=== PATIENT | male | born 1955 | race African-American/Black ===

== ENCOUNTER 2021-02-04 11:15 | Inpatient (IN) | payer OTHER ==
[2021-02-04 12:19] LABS: BASO % 0.4 % (0-2.0); EOS % 0.8 % (0-4.5); HEMATOCRIT 28.5 % (35.4-49); HEMOGLOBIN 9.2 GM/dL (11.7-16.9); MCH 26.1 pg (25.7-33.7); MCHC 32.3 g/dl (32.0-35.9); MEAN CELL VOLUME 80.9 fl (80-96); MEAN PLT VOLUME 8.4 fl (7.5-11.1); MONO % 4.9 % (3.8-10.2); NEUT % 79.9 % (42.8-82.8); PLATELET COUNT 444 K/MM3 (134-434); RBC 3.53 M/mm3 (4.00-5.60); RDW 19.7 % (11.9-15.9); WHITE BLOOD COUNT 6.4 K/mm3 (4.0-10.0)
[2021-02-04 12:27] LABS: INR 1.09 (0.83-1.09); PROTHROMBIN TIME (PATIENT) 13.4 SEC (9.7-13.0)
[2021-02-04 12:29] LABS: ACTIVATED PTT 29.3 SECONDS (25.2-36.5)
[2021-02-04 12:39] LABS: CHLORIDE 106 mmol/L (98-107); SODIUM 136 mmol/L (136-145)
[2021-02-04 12:41] LABS: ALBUMIN 3.4 g/dl (3.4-5.0); ANION GAP 7 MMOL/L (8-16); BLOOD UREA NITROGEN 39.2 mg/dL (7-18); CALCIUM 10.8 mg/dL (8.5-10.1); CO2 23 mmol/L (21-32); MAGNESIUM 1.5 mg/dL (1.8-2.4)
[2021-02-04 12:42] LABS: GLUCOSE,RANDOM 86 mg/dL (74-106)
[2021-02-04 12:43] LABS: SGOT/AST 14 U/L (15-37); SGPT/ALT 8 U/L (13-61)
[2021-02-04 12:45] LABS: BILIRUBIN,TOTAL 0.3 mg/dL (0.2-1); CREATININE 1.7 mg/dL (0.55-1.3); TOT PROT 8.3 g/dl (6.4-8.2)
[2021-02-04 12:47] LABS: ALK PHOS 82 U/L (45-117)
[2021-02-04 12:50] LABS: N-TERMINAL BNP 317.2 pg/ml (5-125)
[2021-02-04] MEDS ORDERED: MAGNESIUM SULF 50% (8.12 MEQ/2 ML-1 GM VIAL) IVPB ONE (13:37)
[2021-02-04] MEDS ORDERED: MAGNESIUM SULFATE IN WATER 2 GM/50 ML IVPB IVPB ONE (13:43)
[2021-02-04] MEDS ORDERED: morphine CARPU-JECT 2 MG/1 ML DISP.SYRIN IVPUSH ONE (14:20)
[2021-02-04] MEDS ORDERED: LACTATED RINGERS SOLUTION 1000 ML INFUS.BAG IV ONE (14:20)
[2021-02-04] MEDS ORDERED: MORPHINE SULFATE 2 MG/ML VIAL ONE (14:34)
[2021-02-04 15:08] LABS: INR 1.08 (0.83-1.09); PROTHROMBIN TIME (PATIENT) 13.2 SEC (9.7-13.0)
[2021-02-04 15:10] LABS: ACTIVATED PTT 27.5 SECONDS (25.2-36.5)
[2021-02-04] MEDS ORDERED: ACETAMINOPHEN 325 MG TABLET (FP) PO PRN (15:52)
[2021-02-04] MEDS ORDERED: MORPHINE SULFATE 2 MG/ML VIAL IVPUSH PRN (15:52)
[2021-02-04] MEDS: LACTATED RINGERS SOLUTION 1,000 ML IV SCH (16:15)
[2021-02-04 17:42] LABS: IRON SERUM 42 ug/dL (50-175); TOTAL IRON BINDING CAPACITY 238 ug/dL (250-450)
[2021-02-04] MEDS: HEPARIN NA (PORCINE) 5,000 UNITS/ML 1ML VIAL SQ SCH (23:37)
[2021-02-05] MEDS: HEPARIN NA (PORCINE) 5,000 UNITS/ML 1ML VIAL SQ SCH ×3 (06:49→23:07)
[2021-02-05 07:16] LABS: BASO % 1.3 % (0-2.0); EOS % 1.9 % (0-4.5); HEMATOCRIT 23.4 % (35.4-49); HEMOGLOBIN 7.4 GM/dL (11.7-16.9); LYMPH % 22.2 % (8-40); MCH 25.8 pg (25.7-33.7); MCHC 31.5 g/dl (32.0-35.9); MEAN PLT VOLUME 8.9 fl (7.5-11.1); NEUT % 67.6 % (42.8-82.8); PLATELET COUNT 409 K/MM3 (134-434); RBC 2.85 M/mm3 (4.00-5.60); RDW 19.8 % (11.9-15.9); WHITE BLOOD COUNT 4.7 K/mm3 (4.0-10.0)
[2021-02-05 07:35] LABS: BLOOD UREA NITROGEN 33.2 mg/dL (7-18); CALCIUM 9.2 mg/dL (8.5-10.1); MAGNESIUM 1.8 mg/dL (1.8-2.4)
[2021-02-05 07:37] LABS: CREATININE 1.3 mg/dL (0.55-1.3)
[2021-02-05 07:39] LABS: BILIRUBIN,TOTAL 0.4 mg/dL (0.2-1); PHOSPHOROUS 4.1 mg/dL (2.5-4.9); TOT PROT 6.4 g/dl (6.4-8.2)
[2021-02-05 07:46] LABS: ALBUMIN 2.6 g/dl (3.4-5.0)
[2021-02-05] MEDS: FERROUS SO4 325 MG TABLET (FP) PO SCH (11:51)
[2021-02-05] MEDS: LACTATED RINGERS SOLUTION 1,000 ML IV SCH (15:27)
[2021-02-05] MEDS: ACETAMINOPHEN 325 MG TABLET (FP) PO PRN ×2 (18:19→23:06)
[2021-02-06] MEDS: LACTATED RINGERS SOLUTION 1,000 ML IV SCH ×3 (01:42→18:31)
[2021-02-06] MEDS: HEPARIN NA (PORCINE) 5,000 UNITS/ML 1ML VIAL SQ SCH ×3 (06:35→20:59)
[2021-02-06 07:32] LABS: HEMATOCRIT 21.1 % (35.4-49); MCH 26.7 pg (25.7-33.7); MCHC 33.1 g/dl (32.0-35.9); MEAN CELL VOLUME 80.7 fl (80-96); MEAN PLT VOLUME 8.9 fl (7.5-11.1); PLATELET COUNT 380 K/MM3 (134-434); RBC 2.62 M/mm3 (4.00-5.60); RDW 19.8 % (11.9-15.9); WHITE BLOOD COUNT 4.6 K/mm3 (4.0-10.0)
[2021-02-06 08:07] LABS: ALBUMIN 2.3 g/dl (3.4-5.0); BLOOD UREA NITROGEN 29.7 mg/dL (7-18); CALCIUM 8.9 mg/dL (8.5-10.1)
[2021-02-06 08:11] LABS: CREATININE 1.1 mg/dL (0.55-1.3)
[2021-02-06 08:12] LABS: BILIRUBIN,TOTAL 0.2 mg/dL (0.2-1); TOT PROT 5.8 g/dl (6.4-8.2)
[2021-02-06] MEDS: FERROUS SO4 325 MG TABLET (FP) PO SCH (09:44)
[2021-02-06] MEDS: MORPHINE SULFATE 2 MG/ML VIAL IVPUSH PRN ×3 (09:50→20:18)
[2021-02-07] MEDS: LACTATED RINGERS SOLUTION 1,000 ML IV SCH (00:20)
[2021-02-07] MEDS: MORPHINE SULFATE 2 MG/ML VIAL IVPUSH PRN ×3 (00:20→14:46)
[2021-02-07] MEDS: HEPARIN NA (PORCINE) 5,000 UNITS/ML 1ML VIAL SQ SCH ×3 (05:24→21:11)
[2021-02-07] MEDS: FERROUS SO4 325 MG TABLET (FP) PO SCH (09:25)
[2021-02-07 09:53] LABS: HEMATOCRIT 21.8 % (35.4-49); HEMOGLOBIN 7.1 GM/dL (11.7-16.9); LYMPH % 18.8 % (8-40); MCH 26.3 pg (25.7-33.7); MCHC 32.5 g/dl (32.0-35.9); MEAN CELL VOLUME 80.9 fl (80-96); MEAN PLT VOLUME 8.5 fl (7.5-11.1); MONO % 10.6 % (3.8-10.2); NEUT % 67.6 % (42.8-82.8); PLATELET COUNT 405 K/MM3 (134-434); RBC 2.69 M/mm3 (4.00-5.60); RDW 20.2 % (11.9-15.9); WHITE BLOOD COUNT 6.5 K/mm3 (4.0-10.0)
[2021-02-07] MEDS: ACETAMINOPHEN 325 MG TABLET (FP) PO PRN (17:09)
[2021-02-07 17:33] VITALS: BMI 16.7
[2021-02-08] MEDS: ACETAMINOPHEN 325 MG TABLET (FP) PO PRN ×2 (05:44→21:10)
[2021-02-08] MEDS: HEPARIN NA (PORCINE) 5,000 UNITS/ML 1ML VIAL SQ SCH ×3 (05:45→21:08)
[2021-02-08 07:21] LABS: BASO % 1.3 % (0-2.0); EOS % 3.5 % (0-4.5); HEMATOCRIT 21.9 % (35.4-49); HEMOGLOBIN 7.3 GM/dL (11.7-16.9); LYMPH % 16.6 % (8-40); MCH 26.8 pg (25.7-33.7); MCHC 33.4 g/dl (32.0-35.9); MEAN CELL VOLUME 80.3 fl (80-96); MEAN PLT VOLUME 8.9 fl (7.5-11.1); MONO % 11.8 % (3.8-10.2); NEUT % 66.8 % (42.8-82.8); PLATELET COUNT 412 K/MM3 (134-434); RBC 2.73 M/mm3 (4.00-5.60); RDW 20.3 % (11.9-15.9); WHITE BLOOD COUNT 8.1 K/mm3 (4.0-10.0)
[2021-02-08] MEDS: FERROUS SO4 325 MG TABLET (FP) PO SCH (10:02)
[2021-02-09] MEDS: HEPARIN NA (PORCINE) 5,000 UNITS/ML 1ML VIAL SQ SCH ×3 (05:42→23:02)
[2021-02-09] MEDS: MORPHINE SULFATE 2 MG/ML VIAL IVPUSH PRN (07:56)
[2021-02-09] MEDS: FERROUS SO4 325 MG TABLET (FP) PO SCH (09:02)
[2021-02-09] MEDS: ACETAMINOPHEN 325 MG TABLET (FP) PO PRN (23:02)
[2021-02-10] MEDS: HEPARIN NA (PORCINE) 5,000 UNITS/ML 1ML VIAL SQ SCH ×3 (06:17→21:47)
[2021-02-10] MEDS: MORPHINE SULFATE 2 MG/ML VIAL IVPUSH PRN (08:07)
[2021-02-10] MEDS: FERROUS SO4 325 MG TABLET (FP) PO SCH (10:16)
[2021-02-10] MEDS: DOCUSATE SODIUM 100 MG CAPSULE (FP) PO SCH ×2 (14:04→21:47)
[2021-02-10] MEDS: ACETAMINOPHEN 325 MG TABLET (FP) PO PRN (19:45)
[2021-02-11] MEDS: DOCUSATE SODIUM 100 MG CAPSULE (FP) PO SCH ×3 (06:11→22:04)
[2021-02-11] MEDS: HEPARIN NA (PORCINE) 5,000 UNITS/ML 1ML VIAL SQ SCH ×3 (06:11→22:04)
[2021-02-11 07:57] LABS: HEMATOCRIT 22.7 % (35.4-49); HEMOGLOBIN 7.5 GM/dL (11.7-16.9); MCH 26.7 pg (25.7-33.7); MCHC 33.2 g/dl (32.0-35.9); MEAN CELL VOLUME 80.6 fl (80-96); MEAN PLT VOLUME 9.2 fl (7.5-11.1); PLATELET COUNT 502 K/MM3 (134-434); RBC 2.81 M/mm3 (4.00-5.60); RDW 20.6 % (11.9-15.9); WHITE BLOOD COUNT 5.3 K/mm3 (4.0-10.0)
[2021-02-11 08:43] LABS: BLOOD UREA NITROGEN 32.6 mg/dL (7-18)
[2021-02-11 08:47] LABS: TOT PROT 7.2 g/dl (6.4-8.2)
[2021-02-11 08:49] LABS: CREATININE 1.2 mg/dL (0.55-1.3)
[2021-02-11 08:50] LABS: BILIRUBIN,TOTAL 0.3 mg/dL (0.2-1)
[2021-02-11 08:52] LABS: CALCIUM 10.7 mg/dL (8.5-10.1)
[2021-02-11] MEDS: FERROUS SO4 325 MG TABLET (FP) PO SCH (10:03)
[2021-02-11] MEDS ORDERED: oxyCODONE HCL 5 MG TABLET PO PRN (12:49)
[2021-02-12] MEDS: HEPARIN NA (PORCINE) 5,000 UNITS/ML 1ML VIAL SQ SCH ×3 (05:32→21:33)
[2021-02-12] MEDS: DOCUSATE SODIUM 100 MG CAPSULE (FP) PO SCH ×3 (05:35→21:32)
[2021-02-12] MEDS: FERROUS SO4 325 MG TABLET (FP) PO SCH (09:28)
[2021-02-12 11:30] LABS: HEMATOCRIT 31.6 % (35.4-49); HEMOGLOBIN 10.9 GM/dL (11.7-16.9); MCH 27.7 pg (25.7-33.7); MCHC 34.5 g/dl (32.0-35.9); MEAN CELL VOLUME 80.2 fl (80-96); MEAN PLT VOLUME 8.1 fl (7.5-11.1); PLATELET COUNT 472 K/MM3 (134-434); RBC 3.94 M/mm3 (4.00-5.60); RDW 18.3 % (11.9-15.9); WHITE BLOOD COUNT 8.2 K/mm3 (4.0-10.0)
[2021-02-13] MEDS: DOCUSATE SODIUM 100 MG CAPSULE (FP) PO SCH ×3 (06:22→21:35)
[2021-02-13] MEDS: HEPARIN NA (PORCINE) 5,000 UNITS/ML 1ML VIAL SQ SCH ×4 (06:26→21:35)
[2021-02-13] MEDS ORDERED: DEXMEDETOMIDINE HCL 200 MCG/2 ML IVPB ONE ×2 (06:29→06:30)
[2021-02-13] MEDS ORDERED: EPHEDRINE SULFATE/0.9% NACL/PF 50 MG/10 ML SYRINGE NR ONE (06:51)
[2021-02-13] MEDS ORDERED: PROPOFOL 20 ML ONE ×2 (06:51)
[2021-02-13] MEDS ORDERED: ETOMIDATE 20 MG/10 ML AMPUL IVPUSH ONE (06:52)
[2021-02-13] MEDS ORDERED: ceFAZolin SODIUM 1 GM VIAL ONE ×2 (06:52→15:40)
[2021-02-13] MEDS ORDERED: ONDANSETRON 4 MG/2 ML VIAL ONE ×2 (06:52→11:40)
[2021-02-13] MEDS ORDERED: ROCURONIUM BROMIDE 50 MG/5 ML SYRINGE ONE (06:54)
[2021-02-13] MEDS ORDERED: fentaNYL CITRATE 250 MCG/5 ML VIAL ONE (06:57)
[2021-02-13] MEDS ORDERED: MIDAZOLAM HCL 2 MG/2 ML SINGLE DOSE VIAL ONE (06:58)
[2021-02-13] MEDS ORDERED: KETAMINE HCL 200 MG/20 ML VIAL ONE (06:58)
[2021-02-13] MEDS ORDERED: BUPIVACAINE HCL 200 ML ONE (07:06)
[2021-02-13] MEDS ORDERED: LIDOCAINE 1%/EPI 1:100000 (50 ML MULTI DOSE VIAL) ONE (07:06)
[2021-02-13] MEDS ORDERED: GENTAMICIN SO4 80 MG/2 ML VIAL ONE (07:06)
[2021-02-13] MEDS ORDERED: BUPIVACAINE LIPOSOME/PF (EXPAREL) 266 MG/20 ML VIAL ONE (07:06)
[2021-02-13] MEDS ORDERED: THROMBIN (BOVINE) 20,000 UNIT VIAL TP ONE (07:06)
[2021-02-13] MEDS ORDERED: VANCOMYCIN 1,000 MG VIAL (RESTRICTED TO ID ONLY) IVPB ONE (08:45)
[2021-02-13] MEDS: ceFAZolin SODIUM 1 GM VIAL IVPB ONE ×2 (08:45→15:50)
[2021-02-13] MEDS ORDERED: BACITRACIN 15 GM TUBE TOPICAL OINTMENT TP ONE (08:52)
[2021-02-13] MEDS ORDERED: LIDOCAINE 1%/EPI 1:100000 (20 ML MULTI DOSE VIAL) IJ ONE (08:52)
[2021-02-13] MEDS: FERROUS SO4 325 MG TABLET (FP) PO SCH (09:09)
[2021-02-13] MEDS ORDERED: NEOSTIGMINE METHYLSULFATE 0.5 MG/1 ML - 10 ML MDV ONE (09:34)
[2021-02-13] MEDS ORDERED: BUPIVACAINE HCL/PF 0.5% (5 MG/ML) 30 ML VIAL IJ ONE (12:50)
[2021-02-13] MEDS ORDERED: BUPIVACAINE LIPOSOME/PF (EXPAREL) 266 MG/20 ML VIAL NR ONE (12:50)
[2021-02-13] MEDS ORDERED: ONDANSETRON 4 MG/2 ML VIAL IVPUSH PRN (13:27)
[2021-02-13] MEDS ORDERED: oxyCODONE HCL 5 MG TABLET PO PRN ×2 (13:27)
[2021-02-13] MEDS: LACTATED RINGERS SOLUTION 1,000 ML IV SCH ×2 (13:35→18:50)
[2021-02-13 14:31] LABS: BASO % 0.2 % (0-2.0); EOS % 0.4 % (0-4.5); HEMATOCRIT 31.9 % (35.4-49); HEMOGLOBIN 10.9 GM/dL (11.7-16.9); MCH 28.6 pg (25.7-33.7); MCHC 34.3 g/dl (32.0-35.9); MEAN CELL VOLUME 83.4 fl (80-96); MEAN PLT VOLUME 8.5 fl (7.5-11.1); MONO % 9.8 % (3.8-10.2); NEUT % 77.6 % (42.8-82.8); PLATELET COUNT 320 K/MM3 (134-434); RBC 3.82 M/mm3 (4.00-5.60); RDW 18.3 % (11.9-15.9); WHITE BLOOD COUNT 8.2 K/mm3 (4.0-10.0)
[2021-02-13 15:35] LABS: CALCIUM 10.2 mg/dL (8.5-10.1)
[2021-02-13 15:36] LABS: ALBUMIN 2.8 g/dl (3.4-5.0); BLOOD UREA NITROGEN 29.5 mg/dL (7-18)
[2021-02-13 15:39] LABS: CREATININE 1.2 mg/dL (0.55-1.3)
[2021-02-13 15:41] LABS: BILIRUBIN,TOTAL 0.6 mg/dL (0.2-1); TOT PROT 6.8 g/dl (6.4-8.2)
[2021-02-13 15:50] LABS: LACTIC ACID 2.3 mmol/L (0.4-2.0)
[2021-02-13] MEDS: CEFAZOLIN 2 GM/D5W 2 GM/50 ML ML IVPB SCH ×2 (15:50→15:51)
[2021-02-13] MEDS: HYDROmorphone HCl 2 MG/ML VIAL SQ PRN (19:06)
[2021-02-14] MEDS: CEFAZOLIN 2 GM/D5W 2 GM/50 ML ML IVPB SCH (02:05)
[2021-02-14] MEDS: LACTATED RINGERS SOLUTION 1,000 ML IV SCH (05:16)
[2021-02-14] MEDS: ACETAMINOPHEN 325 MG TABLET (FP) PO PRN ×2 (05:55→21:38)
[2021-02-14] MEDS: DOCUSATE SODIUM 100 MG CAPSULE (FP) PO SCH ×3 (05:56→21:02)
[2021-02-14] MEDS: HEPARIN NA (PORCINE) 5,000 UNITS/ML 1ML VIAL SQ SCH ×3 (05:56→21:01)
[2021-02-14 08:39] LABS: BLOOD UREA NITROGEN 22.2 mg/dL (7-18); CALCIUM 9.8 mg/dL (8.5-10.1)
[2021-02-14 08:42] LABS: CREATININE 1.2 mg/dL (0.55-1.3)
[2021-02-14] MEDS: FERROUS SO4 325 MG TABLET (FP) PO SCH (09:12)
[2021-02-14] MEDS: HYDROmorphone HCl 2 MG/ML VIAL SQ PRN (09:14)
[2021-02-14] MEDS ORDERED: PT OWN MED DRAWER 7, Y5N ONE (12:30)
[2021-02-15] MEDS: DOCUSATE SODIUM 100 MG CAPSULE (FP) PO SCH ×3 (05:38→21:15)
[2021-02-15] MEDS: HEPARIN NA (PORCINE) 5,000 UNITS/ML 1ML VIAL SQ SCH ×3 (05:39→21:16)
[2021-02-15] MEDS: FERROUS SO4 325 MG TABLET (FP) PO SCH (09:32)
[2021-02-15] MEDS: LACTATED RINGERS SOLUTION 1,000 ML IV SCH ×2 (14:14→23:45)
[2021-02-16] MEDS: DOCUSATE SODIUM 100 MG CAPSULE (FP) PO SCH ×3 (05:38→21:00)
[2021-02-16] MEDS: HEPARIN NA (PORCINE) 5,000 UNITS/ML 1ML VIAL SQ SCH ×3 (05:38→21:00)
[2021-02-16] MEDS: LACTATED RINGERS SOLUTION 1,000 ML IV SCH ×2 (05:43→13:56)
[2021-02-16 08:44] LABS: HEMATOCRIT 31.7 % (35.4-49); HEMOGLOBIN 10.9 GM/dL (11.7-16.9); MCH 28.6 pg (25.7-33.7); MCHC 34.5 g/dl (32.0-35.9); MEAN PLT VOLUME 8.9 fl (7.5-11.1); PLATELET COUNT 330 K/MM3 (134-434); RBC 3.82 M/mm3 (4.00-5.60); RDW 19.6 % (11.9-15.9); WHITE BLOOD COUNT 13.6 K/mm3 (4.0-10.0)
[2021-02-16 09:19] LABS: BLOOD UREA NITROGEN 12.5 mg/dL (7-18)
[2021-02-16 09:21] LABS: ALBUMIN 2.3 g/dl (3.4-5.0)
[2021-02-16 09:23] LABS: CREATININE 0.9 mg/dL (0.55-1.3)
[2021-02-16 09:24] LABS: BILIRUBIN,TOTAL 0.8 mg/dL (0.2-1); TOT PROT 6.3 g/dl (6.4-8.2)
[2021-02-16] MEDS: FERROUS SO4 325 MG TABLET (FP) PO SCH (09:39)
[2021-02-16] MEDS: ACETAMINOPHEN 325 MG TABLET (FP) PO PRN ×2 (10:50→21:01)
[2021-02-16] MEDS: POLYETHYLENE GLYCOL 3350 119 GM BTL PO SCH ×2 (13:56→21:01)
[2021-02-17] MEDS: DOCUSATE SODIUM 100 MG CAPSULE (FP) PO SCH ×3 (05:19→21:23)
[2021-02-17] MEDS: HEPARIN NA (PORCINE) 5,000 UNITS/ML 1ML VIAL SQ SCH ×3 (05:19→21:24)
[2021-02-17] MEDS: FERROUS SO4 325 MG TABLET (FP) PO SCH (10:01)
[2021-02-17] MEDS: POLYETHYLENE GLYCOL 3350 119 GM BTL PO SCH ×2 (10:02→21:24)
[2021-02-17] MEDS: LACTATED RINGERS SOLUTION 1,000 ML IV SCH ×2 (13:34→14:35)
[2021-02-17] MEDS: MINERAL OIL/PET HY-PHL TOPICAL OINTMENT 454 GM JAR TP SCH ×2 (14:35→21:23)
[2021-02-17] MEDS: ACETAMINOPHEN 325 MG TABLET (FP) PO PRN (18:59)
[2021-02-17 20:39] LABS: EPI CELLS 7 /uL (0-25.1); HYALINE CASTS 0 /uL (0-3.1); PH,URINE 8.5 (5.0-8.0); URINE APPEARANCE CLEAR; URINE BACTERIA 52 /uL (0-1359); URINE BILIRUBIN NEGATIVE (NEGATIVE); URINE COLOR YELLOW; URINE GLUCOSE (UA) NEGATIVE (NEGATIVE); URINE KETONE NEGATIVE (NEGATIVE); URINE LEUK ESTERASE NEGATIVE (NEGATIVE); URINE NITRITE NEGATIVE (NEGATIVE); URINE PROTEIN 1+ (NEGATIVE); URINE RBC 12 /uL (0-23.9); URINE WBC 3 /uL (0-25.8)
[2021-02-18] MEDS: ACETAMINOPHEN 325 MG TABLET (FP) PO PRN (02:38)
[2021-02-18] MEDS: HEPARIN NA (PORCINE) 5,000 UNITS/ML 1ML VIAL SQ SCH ×3 (05:36→21:09)
[2021-02-18] MEDS: DOCUSATE SODIUM 100 MG CAPSULE (FP) PO SCH ×3 (05:36→21:08)
[2021-02-18 07:30] LABS: BASO % 0.6 % (0-2.0); EOS % 1.1 % (0-4.5); HEMOGLOBIN 9.9 GM/dL (11.7-16.9); LYMPH % 10.2 % (8-40); MCH 28.7 pg (25.7-33.7); MCHC 34.3 g/dl (32.0-35.9); MEAN CELL VOLUME 83.7 fl (80-96); MEAN PLT VOLUME 8.4 fl (7.5-11.1); MONO % 10.6 % (3.8-10.2); NEUT % 77.5 % (42.8-82.8); PLATELET COUNT 345 K/MM3 (134-434); RBC 3.46 M/mm3 (4.00-5.60); RDW 19.8 % (11.9-15.9); WHITE BLOOD COUNT 8.9 K/mm3 (4.0-10.0)
[2021-02-18 07:49] LABS: CREATININE 0.8 mg/dL (0.55-1.3)
[2021-02-18 07:50] LABS: BILIRUBIN,TOTAL 0.6 mg/dL (0.2-1); TOT PROT 5.8 g/dl (6.4-8.2)
[2021-02-18] MEDS: oxyCODONE HCL 5 MG TABLET PO PRN (09:22)
[2021-02-18] MEDS: POLYETHYLENE GLYCOL 3350 119 GM BTL PO SCH ×2 (09:26→21:10)
[2021-02-18] MEDS: FERROUS SO4 325 MG TABLET (FP) PO SCH (09:27)
[2021-02-18] MEDS: MINERAL OIL/PET HY-PHL TOPICAL OINTMENT 454 GM JAR TP SCH ×2 (09:31→21:11)
[2021-02-18] MEDS ORDERED: POTASSIUM CHLORIDE ORAL LIQUID 20 MEQ/15 ML PO ONE (12:30)
[2021-02-18] MEDS: LACTATED RINGERS SOLUTION 1,000 ML IV SCH (13:16)
[2021-02-19] MEDS: ACETAMINOPHEN 325 MG TABLET (FP) PO PRN (05:50)
[2021-02-19] MEDS: HEPARIN NA (PORCINE) 5,000 UNITS/ML 1ML VIAL SQ SCH ×3 (05:50→21:31)
[2021-02-19] MEDS: DOCUSATE SODIUM 100 MG CAPSULE (FP) PO SCH ×3 (05:50→21:31)
[2021-02-19] MEDS ORDERED: PT OWN MED DRAWER 7, Y5N ONE (08:52)
[2021-02-19] MEDS: FERROUS SO4 325 MG TABLET (FP) PO SCH (09:08)
[2021-02-19] MEDS: MINERAL OIL/PET HY-PHL TOPICAL OINTMENT 454 GM JAR TP SCH ×2 (09:08→21:31)
[2021-02-19] MEDS: POLYETHYLENE GLYCOL 3350 119 GM BTL PO SCH ×2 (09:09→21:32)
[2021-02-19] MEDS: LACTATED RINGERS SOLUTION 1,000 ML IV SCH (13:16)
[2021-02-19] MEDS: oxyCODONE HCL 5 MG TABLET PO PRN (17:41)
[2021-02-20] MEDS: HEPARIN NA (PORCINE) 5,000 UNITS/ML 1ML VIAL SQ SCH (05:38)
[2021-02-20] MEDS: DOCUSATE SODIUM 100 MG CAPSULE (FP) PO SCH ×3 (05:38→21:12)
[2021-02-20 08:25] LABS: BASO % 0.5 % (0-2.0); EOS % 2.9 % (0-4.5); HEMATOCRIT 29.9 % (35.4-49); HEMOGLOBIN 10.4 GM/dL (11.7-16.9); LYMPH % 12.3 % (8-40); MCH 28.6 pg (25.7-33.7); MCHC 34.7 g/dl (32.0-35.9); MEAN CELL VOLUME 82.4 fl (80-96); MEAN PLT VOLUME 8.1 fl (7.5-11.1); MONO % 10.9 % (3.8-10.2); NEUT % 73.4 % (42.8-82.8); PLATELET COUNT 463 K/MM3 (134-434); RBC 3.62 M/mm3 (4.00-5.60); WHITE BLOOD COUNT 8.4 K/mm3 (4.0-10.0)
[2021-02-20 08:46] LABS: ALBUMIN 2.3 g/dl (3.4-5.0); BLOOD UREA NITROGEN 9.5 mg/dL (7-18); CALCIUM 8.5 mg/dL (8.5-10.1)
[2021-02-20 08:49] LABS: CREATININE 0.8 mg/dL (0.55-1.3)
[2021-02-20 08:50] LABS: BILIRUBIN,TOTAL 0.5 mg/dL (0.2-1); TOT PROT 6.3 g/dl (6.4-8.2)
[2021-02-20] MEDS: POLYETHYLENE GLYCOL 3350 119 GM BTL PO SCH ×2 (09:00→21:14)
[2021-02-20] MEDS: FERROUS SO4 325 MG TABLET (FP) PO SCH (09:01)
[2021-02-20] MEDS: MINERAL OIL/PET HY-PHL TOPICAL OINTMENT 454 GM JAR TP SCH ×2 (09:07→21:14)
[2021-02-20] MEDS: LACTATED RINGERS SOLUTION 1,000 ML IV SCH (13:00)
[2021-02-20] MEDS: ACETAMINOPHEN 325 MG TABLET (FP) PO PRN (16:01)
[2021-02-21] MEDS: DOCUSATE SODIUM 100 MG CAPSULE (FP) PO SCH ×3 (05:42→21:58)
[2021-02-21] MEDS: FERROUS SO4 325 MG TABLET (FP) PO SCH (09:28)
[2021-02-21] MEDS: MINERAL OIL/PET HY-PHL TOPICAL OINTMENT 454 GM JAR TP SCH ×2 (09:28→21:58)
[2021-02-21] MEDS: POLYETHYLENE GLYCOL 3350 119 GM BTL PO SCH ×2 (09:29→21:56)
[2021-02-21] MEDS: ACETAMINOPHEN 325 MG TABLET (FP) PO PRN (12:10)
[2021-02-21] MEDS: LACTATED RINGERS SOLUTION 1,000 ML IV SCH (18:29)
[2021-02-22] MEDS: DOCUSATE SODIUM 100 MG CAPSULE (FP) PO SCH ×3 (06:02→21:26)
[2021-02-22] MEDS: MINERAL OIL/PET HY-PHL TOPICAL OINTMENT 454 GM JAR TP SCH ×2 (09:35→21:25)
[2021-02-22] MEDS: FERROUS SO4 325 MG TABLET (FP) PO SCH (09:35)
[2021-02-22] MEDS: POLYETHYLENE GLYCOL 3350 119 GM BTL PO SCH ×2 (09:36→21:26)
[2021-02-22] MEDS ORDERED: PT OWN MED DRAWER 7, Y5N ONE (21:08)
[2021-02-23] MEDS: DOCUSATE SODIUM 100 MG CAPSULE (FP) PO SCH ×3 (06:05→21:09)
[2021-02-23] MEDS: ACETAMINOPHEN 325 MG TABLET (FP) PO PRN ×2 (09:00→22:21)
[2021-02-23] MEDS: POLYETHYLENE GLYCOL 3350 119 GM BTL PO SCH ×2 (09:02→21:09)
[2021-02-23] MEDS: FERROUS SO4 325 MG TABLET (FP) PO SCH (09:02)
[2021-02-23] MEDS: MINERAL OIL/PET HY-PHL TOPICAL OINTMENT 454 GM JAR TP SCH ×2 (10:08→21:09)
[2021-02-23] MEDS: ENOXAPARIN NA (PORCINE) 40 MG/0.4 ML DISP.SYRIN SQ SCH (17:06)
[2021-02-24] MEDS: DOCUSATE SODIUM 100 MG CAPSULE (FP) PO SCH ×3 (05:30→21:34)
[2021-02-24] MEDS: ENOXAPARIN NA (PORCINE) 40 MG/0.4 ML DISP.SYRIN SQ SCH (09:46)
[2021-02-24] MEDS: FERROUS SO4 325 MG TABLET (FP) PO SCH (09:46)
[2021-02-24] MEDS: MINERAL OIL/PET HY-PHL TOPICAL OINTMENT 454 GM JAR TP SCH ×2 (09:46→21:34)
[2021-02-24] MEDS: POLYETHYLENE GLYCOL 3350 119 GM BTL PO SCH ×2 (09:47→21:35)
[2021-02-25] MEDS: MINERAL OIL/PET HY-PHL TOPICAL OINTMENT 454 GM JAR TP SCH ×3 (06:16→21:35)
[2021-02-25] MEDS: DOCUSATE SODIUM 100 MG CAPSULE (FP) PO SCH ×3 (06:16→21:35)
[2021-02-25] MEDS: ACETAMINOPHEN 325 MG TABLET (FP) PO PRN (09:45)
[2021-02-25] MEDS: FERROUS SO4 325 MG TABLET (FP) PO SCH (09:45)
[2021-02-25] MEDS: ENOXAPARIN NA (PORCINE) 40 MG/0.4 ML DISP.SYRIN SQ SCH (09:46)
[2021-02-25] MEDS: POLYETHYLENE GLYCOL 3350 119 GM BTL PO SCH ×2 (09:47→21:35)
[2021-02-26] MEDS: DOCUSATE SODIUM 100 MG CAPSULE (FP) PO SCH ×2 (05:51→15:25)
[2021-02-26 07:12] VITALS: BP 118/70; PULSE 90; TEMP 98.7
[2021-02-26] MEDS: POLYETHYLENE GLYCOL 3350 119 GM BTL PO SCH (10:50)
[2021-02-26] MEDS: FERROUS SO4 325 MG TABLET (FP) PO SCH (10:51)
[2021-02-26] MEDS: ENOXAPARIN NA (PORCINE) 40 MG/0.4 ML DISP.SYRIN SQ SCH (10:51)
[2021-02-26] MEDS: ACETAMINOPHEN 325 MG TABLET (FP) PO PRN (10:51)
[2021-02-26] MEDS: MINERAL OIL/PET HY-PHL TOPICAL OINTMENT 454 GM JAR TP SCH (10:53)
== END 2021-02-26 17:30 | disposition home or self-care (01) | DRG 304 ==
LOC: JER 11:15 → JERBED 15:01 → J7W 18:39 → J4W 23:08 → J7W 02-05 17:01 → J8W 02-13 17:54
PROVIDERS: ADMIT Internal Medicine; ATTEND Internal Medicine
PROC: 30233N1 Transfusion of Nonautologous Red Blood Cells into Peripheral Vein, Percutaneous Approach (ICD-10-PCS; 2021-02-11)
PROC: 30233K1 Transfusion of Nonautologous Frozen Plasma into Peripheral Vein, Percutaneous Approach (ICD-10-PCS; 2021-02-11)
PROC: 0RG2071 Fusion of 2 or more Cervical Vertebral Joints with Autologous Tissue Substitute, Posterior Approach, Posterior Column, Open Approach (ICD-10-PCS; 2021-02-13)
PROC: 0RG4071 Fusion of Cervicothoracic Vertebral Joint with Autologous Tissue Substitute, Posterior Approach, Posterior Column, Open Approach (ICD-10-PCS; 2021-02-13)
PROC: 0RG7071 Fusion of 2 to 7 Thoracic Vertebral Joints with Autologous Tissue Substitute, Posterior Approach, Posterior Column, Open Approach (ICD-10-PCS; 2021-02-13)
PROC: 00NW0ZZ Release Cervical Spinal Cord, Open Approach (ICD-10-PCS; 2021-02-13)
PROC: 00NX0ZZ Release Thoracic Spinal Cord, Open Approach (ICD-10-PCS; 2021-02-13)
PROC: B01BZZZ Fluoroscopy of Spinal Cord (ICD-10-PCS; 2021-02-13)
PROC: 4A11X4G Monitoring of Peripheral Nervous Electrical Activity, Intraoperative, External Approach (ICD-10-PCS; 2021-02-13)
PROC: 0PB40ZX Excision of Thoracic Vertebra, Open Approach, Diagnostic (ICD-10-PCS; principal; 2021-02-13 08:00)
DX: C79.51 Secondary malignant neoplasm of bone (principal); C34.90 Malignant neoplasm of unspecified part of unspecified bronchus or lung; E43 Unspecified severe protein-calorie malnutrition; Z68.1 Body mass index [BMI] 19.9 or less, adult; E11.52 Type 2 diabetes mellitus with diabetic peripheral angiopathy with gangrene; D64.9 Anemia, unspecified; E83.42 Hypomagnesemia; N17.9 Acute kidney failure, unspecified; E83.52 Hypercalcemia; D63.8 Anemia in other chronic diseases classified elsewhere; M85.80 Other specified disorders of bone density and structure, unspecified site; R64 Cachexia; M48.02 Spinal stenosis, cervical region; M48.04 Spinal stenosis, thoracic region; N39.0 Urinary tract infection, site not specified; B96.20 Unspecified Escherichia coli [E. coli] as the cause of diseases classified elsewhere; M47.12 Other spondylosis with myelopathy, cervical region; M40.292 Other kyphosis, cervical region
CPT/HCPCS: 36415; 36430; 70553-TC; 71045-TC-FY; 71250-TC; 72125-TC; 72128-TC; 72141-TC; 72146-TC; 74177-TC; 76000-TC-FY; 78306-TC; 80048; 80053; 81003; 82550; 82728; 83540; 83550; 83605; 83735; 83880; 84100; 84484; 85025; 85027; 85610; 85730; 86850; 86900; 86901; 86922; 87040; 87086; 87186; 88305-TC; 88307-TC; 88311-TC; 88331-TC; 88341-TC; 93005; 93010; 94760; 97116-GP; 97161-GP; 99285-25; A9503; A9579; C9803; J1644; P9017; P9058; Q9967; U0003; U0005

== ENCOUNTER 2021-03-19 07:47 | Day surgery (SDC) | payer OTHER ==
[2021-03-19] MEDS ORDERED: MAGNESIUM SULFATE IV ONE (11:45)
[2021-03-19] MEDS ORDERED: POTASSIUM CHLORIDE IV ONE (11:45)
[2021-03-19] MEDS ORDERED: NORMAL SALINE IV ONE (11:45)
[2021-03-19] MEDS ORDERED: DEXTROSE 5% IV ONE (11:45)
[2021-03-19 17:24] VITALS: BP 131/71; PULSE 131; TEMP 97.8
== END 2021-03-19 15:10 | disposition home or self-care (01) ==
LOC: JONCNONCHE 07:47
PROVIDERS: ATTEND Internal Medicine Hematology & Oncology
PROC: 3E033GC Introduction of Other Therapeutic Substance into Peripheral Vein, Percutaneous Approach (ICD-10-PCS; principal; 2021-03-19)
DX: C34.92 Malignant neoplasm of unspecified part of left bronchus or lung (principal); Z72.0 Tobacco use; Z76.89 Persons encountering health services in other specified circumstances
CPT/HCPCS: 96361; 96375; 96413

== ENCOUNTER 2021-03-20 07:20 | Day surgery (SDC) | payer OTHER ==
[2021-03-20] MEDS ORDERED: D5-1/2NS+20 MEQ KCL - 20 MEQ/1,000 ML INFUS.BAG IV SCH ×2 (10:45→13:45)
[2021-03-20] MEDS ORDERED: MAGNESIUM 1GM/D5W - 1 GM/100 ML IVPB IVPB ONE (10:45)
[2021-03-20] MEDS: D5-1/2NS+20 MEQ KCL - 20 MEQ/1,000 ML INFUS.BAG IV SCH ×2 (11:06→13:50)
[2021-03-20 11:11] LABS: BASO % 0.8 % (0-2.0); EOS % 5.6 % (0-4.5); HEMATOCRIT 28.6 % (35.4-49); HEMOGLOBIN 9.5 GM/dL (11.7-16.9); LYMPH % 16.9 % (8-40); MCH 27.3 pg (25.7-33.7); MCHC 33.2 g/dl (32.0-35.9); MEAN CELL VOLUME 82.1 fl (80-96); MONO % 6.7 % (3.8-10.2); PLATELET COUNT 309 K/MM3 (134-434); RBC 3.48 M/mm3 (4.00-5.60); RDW 20.6 % (11.9-15.9); WHITE BLOOD COUNT 5.9 K/mm3 (4.0-10.0)
[2021-03-20 11:40] LABS: BLOOD UREA NITROGEN 27.4 mg/dL (7-18); CALCIUM 10.5 mg/dL (8.5-10.1); MAGNESIUM 1.4 mg/dL (1.8-2.4)
[2021-03-20 11:43] LABS: CREATININE 1.1 mg/dL (0.55-1.3)
[2021-03-20 11:45] LABS: BILIRUBIN,TOTAL 0.3 mg/dL (0.2-1); TOT PROT 7.6 g/dl (6.4-8.2)
[2021-03-20 12:07] LABS: ANISOCYTOSIS 2+; MACROCYTOSIS 2+; OVALOCYTE 1+; PLATELET ESTIMATE NORMAL
[2021-03-20] MEDS ORDERED: MAGNESIUM SULFATE IN WATER 2 GM/50 ML IVPB IVPB ONE (14:15)
[2021-03-20 17:06] VITALS: TEMP 97.8
[2021-03-20 17:12] VITALS: BP 119/70; PULSE 79
== END 2021-03-20 15:35 | disposition home or self-care (01) ==
LOC: JONCNONCHE 07:20
PROVIDERS: ATTEND Internal Medicine Hematology & Oncology
PROC: 3E033GC Introduction of Other Therapeutic Substance into Peripheral Vein, Percutaneous Approach (ICD-10-PCS; principal; 2021-03-20)
PROC: 3E0337Z Introduction of Electrolytic and Water Balance Substance into Peripheral Vein, Percutaneous Approach (ICD-10-PCS; 2021-03-20)
DX: C34.92 Malignant neoplasm of unspecified part of left bronchus or lung (principal); Z72.0 Tobacco use; Z76.89 Persons encountering health services in other specified circumstances
CPT/HCPCS: 36415; 80053; 83735; 85025; 96365; 96366; 96368

== ENCOUNTER 2021-03-23 04:44 | Day surgery (SDC) | payer OTHER ==
[2021-03-20 18:40] VITALS: BMI 16.9
[2021-03-23] MEDS ORDERED: MIDAZOLAM HCL 2 MG/2 ML SINGLE DOSE VIAL ONE (10:53)
[2021-03-23 13:12] VITALS: PULSE 83
[2021-03-23 14:21] LABS: BASO % 0.3 % (0-2.0); EOS % 3.4 % (0-4.5); HEMATOCRIT 32.6 % (35.4-49); HEMOGLOBIN 10.7 GM/dL (11.7-16.9); LYMPH % 22.3 % (8-40); MCHC 32.8 g/dl (32.0-35.9); MEAN CELL VOLUME 82.1 fl (80-96); PLATELET COUNT 478 10^3/uL (134-434); RBC 3.97 M/mm3 (4.00-5.60); RDW 20.6 % (11.9-15.9); WHITE BLOOD COUNT 7.4 K/mm3 (4.0-10.0)
[2021-03-23 14:43] LABS: ALBUMIN 3.5 g/dl (3.4-5.0); CALCIUM 11.5 mg/dL (8.5-10.1)
[2021-03-23 14:44] LABS: BLOOD UREA NITROGEN 26.5 mg/dL (7-18); MAGNESIUM 1.5 mg/dL (1.8-2.4)
[2021-03-23 14:48] LABS: BILIRUBIN,TOTAL 0.5 mg/dL (0.2-1); TOT PROT 8.9 g/dl (6.4-8.2)
[2021-03-23 15:01] VITALS: BP 120/74; TEMP 98.8
[2021-03-23 15:36] LABS: HIV INTERPRETATION NEGATIVE (NEGATIVE)
== END 2021-03-23 14:30 | disposition home or self-care (01) ==
LOC: JRADIR 04:44
PROVIDERS: ATTEND Internal Medicine Hematology & Oncology
PROC: B518ZZA Fluoroscopy of Superior Vena Cava, Guidance (ICD-10-PCS; principal; 2021-03-23)
PROC: 0JH63WZ Insertion of Totally Implantable Vascular Access Device into Chest Subcutaneous Tissue and Fascia, Percutaneous Approach (ICD-10-PCS; 2021-03-23)
PROC: 02HV33Z Insertion of Infusion Device into Superior Vena Cava, Percutaneous Approach (ICD-10-PCS; 2021-03-23)
DX: C34.90 Malignant neoplasm of unspecified part of unspecified bronchus or lung (principal)
CPT/HCPCS: 36561; C1788; 36415; 80053; 83735; 85025; 86317; 86705; 86706; 86803; 87389

== ENCOUNTER 2021-03-24 07:16 | Day surgery (SDC) | payer OTHER ==
[2021-03-24] MEDS ORDERED: SODIUM CHLORIDE 250 ML IV ONE (09:00)
[2021-03-24] MEDS ORDERED: MAGNESIUM SULFATE IN WATER 2 GM/50 ML IVPB IVPB ONE (09:00)
[2021-03-24] MEDS ORDERED: FAMOTIDINE 20 MG/50 ML IVPB 20 MG/50 ML MG IVPB ONE (09:30)
[2021-03-24] MEDS ORDERED: DEXAMETHASONE SODIUM PHOSPHATE 20 MG, DIPHENHYDRAMINE 25 MG in SODIUM CHLORIDE 100 ML IVPB ONE (09:30)
[2021-03-24] MEDS ORDERED: PALONOSETRON HCL 0.25 MG/5 ML VIAL IVPUSH ONE (09:30)
[2021-03-24] MEDS ORDERED: PACLITAXEL IVPB ONE (10:00)
[2021-03-24] MEDS ORDERED: SODIUM CHLORIDE IVPB ONE ×2 (10:00→11:00)
[2021-03-24] MEDS ORDERED: CARBOPLATIN IVPB ONE (11:00)
[2021-03-24] MEDS ORDERED: PORTA CATH FLUSH 10 ML IVPUSH ONE ×2 (16:31→17:30)
[2021-03-24 17:30] VITALS: BP 136/75; PULSE 80; TEMP 98.2
[2021-03-26 11:13] LABS: PARATHYROID HORM INTACT 9 pg/mL (15-65)
== END 2021-03-24 18:00 | disposition home or self-care (01) ==
LOC: JONCCHEMO 07:16
PROVIDERS: ATTEND Internal Medicine Hematology & Oncology
DX: Z51.11 Encounter for antineoplastic chemotherapy (principal); C34.90 Malignant neoplasm of unspecified part of unspecified bronchus or lung
CPT/HCPCS: 36415; 82306; 82397; 83970; 84100; 94010; 96366; 96367; 96375; 96413; 96417; J2469

== ENCOUNTER 2021-03-31 07:48 | Day surgery (SDC) | payer OTHER ==
[2021-03-31] MEDS ORDERED: traMADol HCL 50 MG TABLET PO ONE (08:45)
[2021-03-31] MEDS ORDERED: SODIUM CHLORIDE 250 ML IV ONE (09:00)
[2021-03-31] MEDS ORDERED: FAMOTIDINE 20 MG/50 ML IVPB 20 MG/50 ML MG IVPB ONE (09:30)
[2021-03-31] MEDS ORDERED: PALONOSETRON HCL 0.25 MG/5 ML VIAL IVPUSH ONE (09:30)
[2021-03-31] MEDS ORDERED: DEXAMETHASONE SODIUM PHOSPHATE 10 MG, DIPHENHYDRAMINE 25 MG in SODIUM CHLORIDE 100 ML IVPB ONE (09:30)
[2021-03-31] MEDS ORDERED: SODIUM CHLORIDE IVPB ONE ×3 (10:00→11:00)
[2021-03-31] MEDS ORDERED: PACLITAXEL IVPB ONE (10:00)
[2021-03-31] MEDS ORDERED: CARBOPLATIN IVPB ONE ×2 (11:00)
[2021-03-31] MEDS ORDERED: MAGNESIUM SULFATE IN WATER 2 GM/50 ML IVPB IVPB ONE (14:30)
[2021-03-31 18:54] VITALS: TEMP 98.3
[2021-03-31 19:12] VITALS: BP 97/54; PULSE 91
== END 2021-03-31 15:45 | disposition home or self-care (01) ==
LOC: JONCCHEMO 07:48
PROVIDERS: ATTEND Internal Medicine Hematology & Oncology
DX: Z51.11 Encounter for antineoplastic chemotherapy (principal); C34.90 Malignant neoplasm of unspecified part of unspecified bronchus or lung
CPT/HCPCS: 96366; 96367; 96375; 96413; 96417; J2469

== ENCOUNTER 2021-04-07 06:45 | Day surgery (SDC) | payer OTHER ==
[2021-04-07] MEDS ORDERED: SODIUM CHLORIDE 0.9% 500 ML INFUS.BAG IV ONE (08:31)
[2021-04-07] MEDS ORDERED: SODIUM CHLORIDE 250 ML IV ONE (09:00)
[2021-04-07] MEDS ORDERED: MAGNESIUM SULFATE IN WATER 2 GM/50 ML IVPB IVPB ONE (09:00)
[2021-04-07] MEDS ORDERED: DEXAMETHASONE SODIUM PHOSPHATE 8 MG, DIPHENHYDRAMINE 25 MG in SODIUM CHLORIDE 100 ML IVPB ONE (09:30)
[2021-04-07] MEDS ORDERED: FAMOTIDINE 20 MG/50 ML IVPB 20 MG/50 ML MG IVPB ONE (09:30)
[2021-04-07] MEDS ORDERED: PALONOSETRON HCL 0.25 MG/5 ML VIAL IVPUSH ONE (09:30)
[2021-04-07] MEDS ORDERED: SODIUM CHLORIDE IVPB ONE ×2 (10:00→11:00)
[2021-04-07] MEDS ORDERED: PACLITAXEL IVPB ONE (10:00)
[2021-04-07] MEDS ORDERED: CARBOPLATIN IVPB ONE (11:00)
[2021-04-07 18:39] VITALS: TEMP 98.4
[2021-04-07] MEDS ORDERED: PORTA CATH FLUSH 10 ML IVPUSH ONE (18:49)
[2021-04-07 18:50] VITALS: BP 95/56; PULSE 78
== END 2021-04-07 14:45 | disposition home or self-care (01) ==
LOC: JONCCHEMO 06:45
PROVIDERS: ATTEND Internal Medicine Hematology & Oncology
DX: Z51.11 Encounter for antineoplastic chemotherapy (principal); C34.90 Malignant neoplasm of unspecified part of unspecified bronchus or lung
CPT/HCPCS: 96360; 96366; 96367; 96375; 96413; 96415; J2469

== ENCOUNTER 2021-04-14 07:15 | Day surgery (SDC) | payer OTHER ==
[2021-04-14] MEDS ORDERED: MAGNESIUM SULFATE IN WATER 2 GM/50 ML IVPB IVPB ONE (09:00)
[2021-04-14 09:07] LABS: BASO % 1.2 % (0-2.0); EOS % 0.8 % (0-4.5); HEMATOCRIT 25.7 % (35.4-49); HEMOGLOBIN 8.3 GM/dL (11.7-16.9); LYMPH % 10.5 % (8-40); MCH 26.2 pg (25.7-33.7); MCHC 32.4 g/dl (32.0-35.9); MEAN CELL VOLUME 80.9 fl (80-96); MEAN PLT VOLUME 7.1 fl (7.5-11.1); MONO % 8.7 % (3.8-10.2); NEUT % 78.8 % (42.8-82.8); PLATELET COUNT 628 10^3/uL (134-434); RBC 3.18 M/mm3 (4.00-5.60); RDW 20.1 % (11.9-15.9); WHITE BLOOD COUNT 5.9 K/mm3 (4.0-10.0)
[2021-04-14 09:13] LABS: BLOOD UREA NITROGEN 28.4 mg/dL (7-18); CALCIUM 9.7 mg/dL (8.5-10.1)
[2021-04-14 09:14] LABS: ALBUMIN 2.8 g/dl (3.4-5.0); MAGNESIUM 1.7 mg/dL (1.8-2.4)
[2021-04-14 09:16] LABS: BILIRUBIN,DIRECT 0.1 mg/dL (0.0-0.2)
[2021-04-14 09:18] LABS: BILIRUBIN,TOTAL 0.2 mg/dL (0.2-1); TOT PROT 7.9 g/dl (6.4-8.2)
[2021-04-14] MEDS ORDERED: SODIUM CHLORIDE 250 ML IV ONE (09:30)
[2021-04-14] MEDS ORDERED: DEXAMETHASONE SODIUM PHOSPHATE 6 MG, DIPHENHYDRAMINE 25 MG in SODIUM CHLORIDE 100 ML IVPB ONE (10:00)
[2021-04-14] MEDS ORDERED: PALONOSETRON HCL 0.25 MG/5 ML VIAL IVPUSH ONE (10:00)
[2021-04-14] MEDS ORDERED: FAMOTIDINE 20 MG/50 ML IVPB 20 MG/50 ML MG IVPB ONE (10:00)
[2021-04-14] MEDS ORDERED: PACLITAXEL IVPB ONE (10:30)
[2021-04-14] MEDS ORDERED: CARBOPLATIN IVPB ONE ×2 (10:30→11:30)
[2021-04-14] MEDS ORDERED: SODIUM CHLORIDE IVPB ONE ×3 (10:30→11:30)
[2021-04-14 16:17] VITALS: TEMP 97.5
[2021-04-14 16:33] VITALS: BP 121/84; PULSE 99
== END 2021-04-14 15:15 | disposition home or self-care (01) ==
LOC: JONCCHEMO 07:15
PROVIDERS: ATTEND Internal Medicine Hematology & Oncology
DX: Z51.11 Encounter for antineoplastic chemotherapy (principal); C34.90 Malignant neoplasm of unspecified part of unspecified bronchus or lung
CPT/HCPCS: 36415; 80048; 80076; 83735; 85025; 96361; 96367; 96375; 96413; 96417; J2469

== ENCOUNTER 2021-04-21 05:42 | Day surgery (SDC) | payer OTHER ==
[2021-04-21] MEDS ORDERED: MAGNESIUM SULFATE IN WATER 2 GM/50 ML IVPB IVPB ONE (09:00)
[2021-04-21] MEDS ORDERED: SODIUM CHLORIDE 250 ML IV ONE (09:00)
[2021-04-21] MEDS ORDERED: PALONOSETRON HCL 0.25 MG/5 ML VIAL IVPUSH ONE (10:00)
[2021-04-21] MEDS ORDERED: FAMOTIDINE 20 MG/50 ML IVPB 20 MG/50 ML MG IVPB ONE (10:00)
[2021-04-21] MEDS ORDERED: DEXAMETHASONE SODIUM PHOSPHATE 6 MG, DIPHENHYDRAMINE 25 MG in SODIUM CHLORIDE 100 ML IVPB ONE (10:00)
[2021-04-21] MEDS ORDERED: PACLITAXEL IVPB ONE (10:30)
[2021-04-21] MEDS ORDERED: SODIUM CHLORIDE IVPB ONE ×2 (10:30→11:30)
[2021-04-21] MEDS ORDERED: CARBOPLATIN IVPB ONE (11:30)
[2021-04-21 15:52] VITALS: TEMP 98
[2021-04-21 16:03] VITALS: BP 103/65; PULSE 88
== END 2021-04-21 14:30 | disposition home or self-care (01) ==
LOC: JONCCHEMO 05:42
PROVIDERS: ATTEND Internal Medicine Hematology & Oncology
DX: Z51.11 Encounter for antineoplastic chemotherapy (principal); C34.90 Malignant neoplasm of unspecified part of unspecified bronchus or lung
CPT/HCPCS: 96361; 96367; 96375; 96413; 96417; J2469

== ENCOUNTER 2021-04-28 07:23 | Day surgery (SDC) | payer OTHER ==
[~2021-04-28 07:23] MED LIST: PACLITAXEL IVPB ONE; SODIUM CHLORIDE IVPB ONE
[2021-04-28] MEDS ORDERED: SODIUM CHLORIDE 250 ML IV ONE (09:00)
[2021-04-28] MEDS ORDERED: DEXAMETHASONE SODIUM PHOSPHATE 6 MG, DIPHENHYDRAMINE 25 MG in SODIUM CHLORIDE 100 ML IVPB ONE (10:00)
[2021-04-28] MEDS ORDERED: PALONOSETRON HCL 0.25 MG/5 ML VIAL IVPUSH ONE (10:00)
[2021-04-28] MEDS ORDERED: FAMOTIDINE 20 MG/50 ML IVPB 20 MG/50 ML MG IVPB ONE (10:00)
[2021-04-28] MEDS ORDERED: MAGNESIUM SULFATE IN WATER 2 GM/50 ML IVPB IVPB ONE (10:00)
[2021-04-28] MEDS ORDERED: PACLITAXEL IVPB ONE (10:30)
[2021-04-28] MEDS ORDERED: SODIUM CHLORIDE IVPB ONE ×2 (10:30→11:30)
[2021-04-28] MEDS ORDERED: CARBOPLATIN IVPB ONE (11:30)
[2021-04-28] MEDS ORDERED: ALTEPLASE 2 MG VIAL CVP ONE (12:00)
[2021-04-28 15:50] VITALS: TEMP 97.8
[2021-04-28 17:51] VITALS: BP 108/63; PULSE 78
== END 2021-04-28 18:13 | disposition home or self-care (01) ==
LOC: JONCCHEMO 07:23
PROVIDERS: ATTEND Internal Medicine Hematology & Oncology
DX: Z51.11 Encounter for antineoplastic chemotherapy (principal); C34.90 Malignant neoplasm of unspecified part of unspecified bronchus or lung
CPT/HCPCS: 36415; 82607; 82728; 83540; 83550; 84439; 84443; 96367; 96375; 96413; 96417; J2469; J2997

== ENCOUNTER 2021-05-05 09:19 | Day surgery (SDC) | payer OTHER ==
[2021-05-05] MEDS ORDERED: SODIUM CHLORIDE IVPB ONE ×4 (11:00→12:30)
[2021-05-05] MEDS ORDERED: CARBOPLATIN IVPB ONE ×2 (11:00→12:30)
[2021-05-05] MEDS ORDERED: PACLITAXEL IVPB ONE ×2 (11:00→11:30)
[2021-05-05] MEDS ORDERED: PALONOSETRON HCL 0.25 MG/5 ML VIAL IVPUSH ONE (11:00)
[2021-05-05] MEDS ORDERED: FAMOTIDINE 20 MG/50 ML IVPB 20 MG/50 ML MG IVPB ONE (11:00)
[2021-05-05] MEDS ORDERED: DEXAMETHASONE INJECTION 20 MG, DIPHENHYDRAMINE 25 MG in SODIUM CHLORIDE 100 ML IVPB ONE (11:00)
[2021-05-05] MEDS ORDERED: MAGNESIUM SULFATE IN WATER 2 GM/50 ML IVPB IVPB ONE (11:00)
[2021-05-05] MEDS ORDERED: SODIUM CHLORIDE 250 ML IV ONE ×3 (11:00→13:30)
[2021-05-05 17:23] VITALS: TEMP 98.1
[2021-05-05 17:39] VITALS: BP 130/76; PULSE 86
== END 2021-05-05 16:55 | disposition home or self-care (01) ==
LOC: JONCCHEMO 09:19
PROVIDERS: ATTEND Internal Medicine Hematology & Oncology
DX: Z51.11 Encounter for antineoplastic chemotherapy (principal); C34.90 Malignant neoplasm of unspecified part of unspecified bronchus or lung
CPT/HCPCS: 96361; 96367; 96375; 96413; 96417; J1100; J2469

== ENCOUNTER 2021-05-12 07:34 | Day surgery (SDC) | payer OTHER ==
[~2021-05-12 07:34] MED LIST changes: +MAGNESIUM SULFATE IN WATER 2 GM/50 ML IVPB IVPB SCH; -PACLITAXEL IVPB ONE; -SODIUM CHLORIDE IVPB ONE
[2021-05-12] MEDS ORDERED: SODIUM CHLORIDE 250 ML IV ONE (09:00)
[2021-05-12] MEDS: MAGNESIUM SULFATE IN WATER 2 GM/50 ML IVPB IVPB SCH ×2 (09:47→10:24)
[2021-05-12] MEDS ORDERED: FAMOTIDINE 20 MG/50 ML IVPB 20 MG/50 ML MG IVPB ONE (10:00)
[2021-05-12] MEDS ORDERED: DEXAMETHASONE INJECTION 10 MG, DIPHENHYDRAMINE 25 MG in SODIUM CHLORIDE 100 ML IVPB ONE (10:00)
[2021-05-12] MEDS ORDERED: traMADol HCL 50 MG TABLET PO ONE (10:00)
[2021-05-12] MEDS ORDERED: PALONOSETRON HCL 0.25 MG/5 ML VIAL IVPUSH ONE (10:00)
[2021-05-12] MEDS ORDERED: PACLITAXEL IVPB ONE (10:30)
[2021-05-12] MEDS ORDERED: SODIUM CHLORIDE IVPB ONE ×2 (10:30→11:30)
[2021-05-12] MEDS ORDERED: CARBOPLATIN IVPB ONE (11:30)
[2021-05-12 17:16] VITALS: TEMP 97.9
[2021-05-12 17:17] VITALS: BP 116/79; PULSE 80
== END 2021-05-12 14:20 | disposition home or self-care (01) ==
LOC: JONCCHEMO 07:34
PROVIDERS: ATTEND Internal Medicine Hematology & Oncology
DX: Z51.11 Encounter for antineoplastic chemotherapy (principal); C34.90 Malignant neoplasm of unspecified part of unspecified bronchus or lung
CPT/HCPCS: 96366; 96367; 96375; 96413; 96417; J1100; J2469

== ENCOUNTER 2021-05-15 07:45 | Day surgery (SDC) | payer OTHER ==
[2021-05-15 08:55] LABS: BASO % 0.7 % (0-2.0); EOS % 1.6 % (0-4.5); HEMATOCRIT 22.7 % (35.4-49); HEMOGLOBIN 7.6 GM/dL (11.7-16.9); MCH 26.9 pg (25.7-33.7); MCHC 33.3 g/dl (32.0-35.9); MEAN CELL VOLUME 80.7 fl (80-96); MEAN PLT VOLUME 7.5 fl (7.5-11.1); MONO % 10.8 % (3.8-10.2); NEUT % 73.9 % (42.8-82.8); PLATELET COUNT 334 10^3/uL (134-434); RBC 2.81 M/mm3 (4.00-5.60); RDW 23.1 % (11.9-15.9); WHITE BLOOD COUNT 2.7 K/mm3 (4.0-10.0)
[2021-05-15 09:19] LABS: ALBUMIN 3.2 g/dl (3.4-5.0); BLOOD UREA NITROGEN 19.4 mg/dL (7-18); CALCIUM 9.5 mg/dL (8.5-10.1); MAGNESIUM 1.6 mg/dL (1.8-2.4)
[2021-05-15 09:24] LABS: BILIRUBIN,TOTAL 0.6 mg/dL (0.2-1); TOT PROT 7.5 g/dl (6.4-8.2)
[2021-05-15 12:00] LABS: ANISOCYTOSIS 1+; MACROCYTOSIS 1+; OVALOCYTE 1+; PLATELET ESTIMATE NORMAL; TARGET CELLS 1+; TEAR DROP CELLS 1+
[2021-05-15 16:58] VITALS: TEMP 98.5
[2021-05-15 18:35] VITALS: BP 127/70; PULSE 70
[2021-05-15 19:04] LABS: BASO % 0.4 % (0-2.0); EOS % 0.9 % (0-4.5); HEMATOCRIT 29.5 % (35.4-49); HEMOGLOBIN 9.9 GM/dL (11.7-16.9); LYMPH % 13.5 % (8-40); MCH 27.8 pg (25.7-33.7); MCHC 33.7 g/dl (32.0-35.9); MEAN CELL VOLUME 82.5 fl (80-96); MEAN PLT VOLUME 7.3 fl (7.5-11.1); MONO % 12.8 % (3.8-10.2); NEUT % 72.4 % (42.8-82.8); PLATELET COUNT 270 10^3/uL (134-434); RBC 3.57 M/mm3 (4.00-5.60); WHITE BLOOD COUNT 2.6 K/mm3 (4.0-10.0)
== END 2021-05-15 19:00 | disposition home or self-care (01) ==
LOC: JONCBLOOD 07:45
PROVIDERS: ATTEND Internal Medicine Hematology & Oncology
PROC: 30233N1 Transfusion of Nonautologous Red Blood Cells into Peripheral Vein, Percutaneous Approach (ICD-10-PCS; principal; 2021-05-15)
DX: C34.92 Malignant neoplasm of unspecified part of left bronchus or lung (principal); D64.81 Anemia due to antineoplastic chemotherapy; Z87.891 Personal history of nicotine dependence; E83.42 Hypomagnesemia
CPT/HCPCS: 36415; 36430; 80053; 83735; 85025; 86850; 86900; 86901; 86922; P9058

== ENCOUNTER 2022-10-31 09:16 | Inpatient (IN) | payer OTHER ==
[2022-10-31] MEDS ORDERED: LACTATED RINGERS SOLUTION 1000 ML INFUS.BAG IV ONE (10:20)
[2022-10-31 10:38] LABS: BASO % 0.9 % (0-2.0); EOS % 2.3 % (0-4.5); HEMATOCRIT 36.4 % (35.4-49); HEMOGLOBIN 11.9 GM/dL (11.7-16.9); LYMPH % 24.7 % (8-40); MCH 28.2 pg (25.7-33.7); MCHC 32.7 g/dl (32.0-35.9); MEAN CELL VOLUME 86.1 fl (80-96); MEAN PLT VOLUME 7.8 fl (7.5-11.1); MONO % 13.2 % (3.8-10.2); NEUT % 58.9 % (42.8-82.8); PLATELET COUNT 227 10^3/uL (134-434); RBC 4.23 M/mm3 (4.00-5.60); RDW 19.2 % (11.9-15.9); WHITE BLOOD COUNT 5.3 K/mm3 (4.0-10.0)
[2022-10-31 10:48] LABS: INR 0.99 (0.83-1.09); PROTHROMBIN TIME (PATIENT) 11.4 SEC (9.7-13.0)
[2022-10-31 10:51] LABS: ACTIVATED PTT 29.4 SECONDS (25.2-36.5)
[2022-10-31 11:01] LABS: CALCIUM 9.5 mg/dL (8.5-10.1)
[2022-10-31 11:02] LABS: ALBUMIN 3.6 g/dl (3.4-5.0); BLOOD UREA NITROGEN 17.6 mg/dL (7-18)
[2022-10-31 11:05] LABS: CREATININE 2.9 mg/dL (0.55-1.3)
[2022-10-31 11:06] LABS: BILIRUBIN,TOTAL 0.3 mg/dL (0.2-1); TOT PROT 7.7 g/dl (6.4-8.2)
[2022-10-31] MEDS: LACTATED RINGERS SOLUTION 1000 ML INFUS.BAG IV ONE ×2 (13:59→14:18)
[2022-10-31] MEDS: LACTATED RINGERS SOLUTION 1,000 ML IV SCH ×2 (13:59→14:19)
[2022-10-31 17:42] VITALS: BMI 16.1
[2022-10-31] MEDS: HEPARIN NA (PORCINE) 5,000 UNITS/ML 1ML VIAL SQ SCH (22:31)
[2022-11-01] MEDS: HEPARIN NA (PORCINE) 5,000 UNITS/ML 1ML VIAL SQ SCH ×2 (09:33→22:12)
[2022-11-01] MEDS: POLYETHYLENE GLYCOL (HEALTHYLAX) 3350 17 GM PACKET PO SCH (09:34)
[2022-11-01 11:28] LABS: BASO % 0.5 % (0-2.0); EOS % 2.6 % (0-4.5); HEMATOCRIT 32.3 % (35.4-49); HEMOGLOBIN 10.6 GM/dL (11.7-16.9); LYMPH % 20.7 % (8-40); MCH 28.6 pg (25.7-33.7); MCHC 32.8 g/dl (32.0-35.9); MEAN CELL VOLUME 87.2 fl (80-96); MEAN PLT VOLUME 8.4 fl (7.5-11.1); MONO % 8.2 % (3.8-10.2); PLATELET COUNT 210 10^3/uL (134-434); RBC 3.71 M/mm3 (4.00-5.60); RDW 19.2 % (11.9-15.9); WHITE BLOOD COUNT 2.9 K/mm3 (4.0-10.0)
[2022-11-01 11:32] LABS: INR 1.01 (0.83-1.09); PROTHROMBIN TIME (PATIENT) 11.6 SEC (9.7-13.0)
[2022-11-01 11:35] LABS: ACTIVATED PTT 27.1 SECONDS (25.2-36.5)
[2022-11-01 11:46] LABS: CHLORIDE 101 mmol/L (98-107); SODIUM 138 mmol/L (136-145)
[2022-11-01 11:51] LABS: BLOOD UREA NITROGEN 17.5 mg/dL (7-18); GLUCOSE,RANDOM 152 mg/dL (74-106)
[2022-11-01 11:52] LABS: AMYLASE 156 U/L (25-115)
[2022-11-01 11:53] LABS: ANION GAP 8 MMOL/L (8-16); CALCIUM 8.6 mg/dL (8.5-10.1); CO2 30 mmol/L (21-32); LIPASE 258 U/L (73-393); SGPT/ALT 17 U/L (13-61)
[2022-11-01 11:54] LABS: CREATININE 1.3 mg/dL (0.55-1.3); PHOSPHOROUS 2.6 mg/dL (2.5-4.9); SGOT/AST 35 U/L (15-37)
[2022-11-01 11:55] LABS: BILIRUBIN,TOTAL 0.5 mg/dL (0.2-1); TOT PROT 6.2 g/dl (6.4-8.2)
[2022-11-01 11:56] LABS: ALK PHOS 73 U/L (45-117)
[2022-11-01 11:57] LABS: N-TERMINAL BNP 191.8 pg/ml (5-125)
[2022-11-01 12:07] LABS: ALBUMIN 2.8 g/dl (3.4-5.0); MAGNESIUM 0.7 mg/dL (1.8-2.4)
[2022-11-01 13:04] LABS: PH,URINE 7.5 (5.0-8.0); URINE APPEARANCE CLEAR; URINE BILIRUBIN NEGATIVE (NEGATIVE); URINE COLOR YELLOW; URINE GLUCOSE (UA) NEGATIVE (NEGATIVE); URINE KETONE NEGATIVE (NEGATIVE); URINE LEUK ESTERASE NEGATIVE (NEGATIVE); URINE NITRITE NEGATIVE (NEGATIVE); URINE PROTEIN TRACE (NEGATIVE)
[2022-11-01] MEDS ORDERED: MAGNESIUM SULFATE IN WATER 2 GM/50 ML IVPB IVPB ONE (14:45)
[2022-11-01] MEDS ORDERED: chlordiazePOXIDE HCL 25 MG CAPSULE PO PRN (15:27)
[2022-11-01] MEDS: ACETAMINOPHEN 325 MG TABLET (FP) PO PRN (18:31)
[2022-11-02] MEDS: POLYETHYLENE GLYCOL (HEALTHYLAX) 3350 17 GM PACKET PO SCH (10:03)
[2022-11-02] MEDS: ACETAMINOPHEN 325 MG TABLET (FP) PO PRN (10:03)
[2022-11-02] MEDS: HEPARIN NA (PORCINE) 5,000 UNITS/ML 1ML VIAL SQ SCH (10:04)
[2022-11-02 10:58] LABS: BLOOD UREA NITROGEN 13.3 mg/dL (7-18); CALCIUM 9.3 mg/dL (8.5-10.1); MAGNESIUM 1.4 mg/dL (1.8-2.4)
[2022-11-02 11:02] LABS: CREATININE 1.1 mg/dL (0.55-1.3)
[2022-11-02] MEDS ORDERED: MAGNESIUM SULF 50% (8.12 MEQ/2 ML-1 GM VIAL) IVPB ONE (11:12)
[2022-11-02] MEDS ORDERED: MAGNESIUM SULF 50% (8.12 MEQ/2 ML-1 GM VIAL) ONE (11:51)
[2022-11-02 15:45] VITALS: BP 128/74; PULSE 72; RESP 18; TEMP 98.8
== END 2022-11-02 16:52 | disposition home or self-care (01) | DRG 682 ==
LOC: JER 09:16 → JERBED 13:13 → J8W 16:49
PROVIDERS: ADMIT Internal Medicine; ATTEND Internal Medicine
DX: N17.9 Acute kidney failure, unspecified (principal); E43 Unspecified severe protein-calorie malnutrition; Z68.1 Body mass index [BMI] 19.9 or less, adult; R64 Cachexia; S42.002A Fracture of unspecified part of left clavicle, initial encounter for closed fracture; F10.929 Alcohol use, unspecified with intoxication, unspecified; I95.9 Hypotension, unspecified; F17.210 Nicotine dependence, cigarettes, uncomplicated; W19.XXXA Unspecified fall, initial encounter; Y93.9 Activity, unspecified; Y92.89 Other specified places as the place of occurrence of the external cause; Y99.9 Unspecified external cause status
CPT/HCPCS: 36415; 70450-TC; 71045-TC-FY; 72125-TC; 72170-TC-FY; 73030-TC-LT-FY; 76775-TC; 80048; 80053; 80307; 81003; 82150; 83690; 83735; 83880; 84100; 84484; 85025; 85610; 85730; 87086; 93005; 93010; 97116-GP; 99285-25; C9803-CS; J1644; U0003; U0005

== ENCOUNTER 2022-12-06 17:15 | Observation (INO) | payer OTHER ==
[2022-12-06 17:27] VITALS: BMI 19.1
[2022-12-06] MEDS ORDERED: TETRAHYDROZOLINE HCL EYE DROPS OD ONE (18:03)
[2022-12-06] MEDS ORDERED: FLUORESCEIN NA 1 EA STRIP ONE (18:05)
[2022-12-06] MEDS ORDERED: TETRACAINE 0.5% OPHTH SOLN 2 ML BOTTLE ONE (18:05)
[2022-12-06] MEDS ORDERED: FOLIC ACID INJECTION - 1 MG, THIAMINE HCL 100 MG, MULTIVIT INJECTION ADULT 10 ML in SOD... IVPB ONE (19:01)
[2022-12-06] MEDS ORDERED: ERYTHROMYCIN 0.5% OPHTHALMIC OINTMENT 3.5 GM TUBE OU STA (19:05)
[2022-12-06] MEDS ORDERED: ERYTHROMYCIN 0.5% OPHTHALMIC OINTMENT 3.5 GM TUBE ONE (19:48)
[2022-12-06 19:52] LABS: HEMATOCRIT 34.7 % (35.4-49); HEMOGLOBIN 11.3 GM/dL (11.7-16.9); MCH 28.9 pg (25.7-33.7); MCHC 32.7 g/dl (32.0-35.9); MEAN CELL VOLUME 88.4 fl (80-96); MEAN PLT VOLUME 7.6 fl (7.5-11.1); PLATELET COUNT 331 10^3/uL (134-434); RBC 3.92 M/mm3 (4.00-5.60); RDW 20.3 % (11.9-15.9); WHITE BLOOD COUNT 3.9 K/mm3 (4.0-10.0)
[2022-12-06] MEDS ORDERED: THIAMINE HCL 200 MG/2 ML VIAL IVPB ONE (20:02)
[2022-12-06] MEDS ORDERED: MAGNESIUM SULF 50% (8.12 MEQ/2 ML-1 GM VIAL) IVPB ONE (20:02)
[2022-12-06] MEDS ORDERED: LACTATED RINGERS SOLUTION 1000 ML INFUS.BAG IV ONE (20:03)
[2022-12-06 20:13] LABS: CALCIUM 9.1 mg/dL (8.5-10.1)
[2022-12-06 20:14] LABS: ALBUMIN 3.4 g/dl (3.4-5.0)
[2022-12-06 20:17] LABS: CREATININE 1.2 mg/dL (0.55-1.3)
[2022-12-06 20:18] LABS: TOT PROT 7.6 g/dl (6.4-8.2)
[2022-12-06 20:19] LABS: BILIRUBIN,TOTAL 0.2 mg/dL (0.2-1)
[2022-12-06 20:31] LABS: ANISOCYTOSIS 0; HELMET CELLS 0; HOWELL-JOLLY BODIES 0; MACROCYTOSIS 0; OVALOCYTE 0; ROULEAU 0; SICKELED CELLS 0; TARGET CELLS 0; TEAR DROP CELLS 0; TOXIC GRANULATION 0
[2022-12-06] MEDS ORDERED: THIAMINE HCL 200 MG/2 ML VIAL ONE (20:43)
[2022-12-06] MEDS ORDERED: MAGNESIUM SULFATE IN WATER 2 GM/50 ML IVPB IVPB ONE (20:44)
[2022-12-06 23:46] LABS: EPI CELLS 1 /uL (0-25.1); HYALINE CASTS 0 /uL (0-3.1); URINE APPEARANCE CLEAR; URINE BACTERIA 4 /uL (0-1359); URINE BILIRUBIN NEGATIVE (NEGATIVE); URINE COLOR YELLOW; URINE GLUCOSE (UA) NEGATIVE (NEGATIVE); URINE KETONE NEGATIVE (NEGATIVE); URINE LEUK ESTERASE NEGATIVE (NEGATIVE); URINE NITRITE NEGATIVE (NEGATIVE); URINE PROTEIN 2+ (NEGATIVE); URINE RBC 2 /uL (0-23.9); URINE UROBILINOGEN 0.2 mg/dL (0.2-1.0); URINE WBC 1 /uL (0-25.8)
[2022-12-07] MEDS ORDERED: traMADol HCL 50 MG TABLET PO PRN (00:44)
[2022-12-07] MEDS ORDERED: LACTATED RINGERS SOLUTION 1,000 ML IV SCH (00:45)
[2022-12-07 07:06] LABS: HEMATOCRIT 32.4 % (35.4-49); HEMOGLOBIN 10.9 GM/dL (11.7-16.9); MCH 29.6 pg (25.7-33.7); MCHC 33.7 g/dl (32.0-35.9); MEAN CELL VOLUME 87.9 fl (80-96); MEAN PLT VOLUME 8.2 fl (7.5-11.1); PLATELET COUNT 335 10^3/uL (134-434); RBC 3.68 M/mm3 (4.00-5.60); RDW 20.2 % (11.9-15.9); WHITE BLOOD COUNT 2.7 K/mm3 (4.0-10.0)
[2022-12-07 07:30] LABS: CALCIUM 8.9 mg/dL (8.5-10.1)
[2022-12-07 07:31] LABS: MAGNESIUM 1.5 mg/dL (1.8-2.4)
[2022-12-07] MEDS ORDERED: MAGNESIUM SULF 50% (8.12 MEQ/2 ML-1 GM VIAL) IVPB ONE (09:00)
[2022-12-07] MEDS: FOLIC ACID 1 MG TABLET (FP) PO SCH (11:09)
[2022-12-07] MEDS: HEPARIN NA (PORCINE) 5,000 UNITS/ML 1ML VIAL SQ SCH ×2 (11:10→21:46)
[2022-12-07] MEDS: THIAMINE HCL 100 MG TABLET (FP) PO SCH (11:10)
[2022-12-07] MEDS ORDERED: MAGNESIUM 2GM/50ML STERILE WATER IVPB IVPB ONE (11:30)
[2022-12-07] MEDS: amLODIPine BESYLATE 5 MG TABLET (FP) PO SCH (15:52)
[2022-12-07 22:42] VITALS: RESP 18
[2022-12-08 08:12] LABS: HEMATOCRIT 35.3 % (35.4-49); MCH 29.9 pg (25.7-33.7); MCHC 34.1 g/dl (32.0-35.9); MEAN CELL VOLUME 87.7 fl (80-96); MEAN PLT VOLUME 8.1 fl (7.5-11.1); PLATELET COUNT 341 10^3/uL (134-434); RBC 4.02 M/mm3 (4.00-5.60); RDW 19.3 % (11.9-15.9); WHITE BLOOD COUNT 2.8 K/mm3 (4.0-10.0)
[2022-12-08 08:26] LABS: CALCIUM 9.3 mg/dL (8.5-10.1)
[2022-12-08 08:27] LABS: BLOOD UREA NITROGEN 12.1 mg/dL (7-18); MAGNESIUM 1.3 mg/dL (1.8-2.4)
[2022-12-08 08:29] LABS: ALBUMIN 3.3 g/dl (3.4-5.0)
[2022-12-08 08:30] LABS: CREATININE 1.1 mg/dL (0.55-1.3); PHOSPHOROUS 3.5 mg/dL (2.5-4.9)
[2022-12-08 08:31] LABS: BILIRUBIN,TOTAL 0.6 mg/dL (0.2-1); TOT PROT 7.4 g/dl (6.4-8.2)
[2022-12-08] MEDS: FOLIC ACID 1 MG TABLET (FP) PO SCH (09:12)
[2022-12-08] MEDS: HEPARIN NA (PORCINE) 5,000 UNITS/ML 1ML VIAL SQ SCH (09:12)
[2022-12-08] MEDS: THIAMINE HCL 100 MG TABLET (FP) PO SCH (09:12)
[2022-12-08] MEDS: amLODIPine BESYLATE 5 MG TABLET (FP) PO SCH (09:12)
[2022-12-08] MEDS ORDERED: MULTIVITAMINS (DAILY MVI) TABLET (FP) PO SCH (10:00)
[2022-12-08] MEDS ORDERED: MAGNESIUM 2GM/50ML STERILE WATER IVPB IVPB ONE (12:00)
[2022-12-08] MEDS ORDERED: MAGNESIUM SULF 50% (8.12 MEQ/2 ML-1 GM VIAL) IVPB ONE (12:28)
[2022-12-08 14:31] VITALS: BP 120/74; PULSE 92; TEMP 98.6
== END 2022-12-08 16:16 | disposition home health service (06) ==
LOC: JER 17:15 → INTOOBSV 22:46 → JERBED 22:46 → J4S 12-07 02:35
PROVIDERS: ADMIT Internal Medicine; ATTEND Internal Medicine
PROC: 3E033GC Introduction of Other Therapeutic Substance into Peripheral Vein, Percutaneous Approach (ICD-10-PCS; principal; 2022-12-06)
PROC: 3E0337Z Introduction of Electrolytic and Water Balance Substance into Peripheral Vein, Percutaneous Approach (ICD-10-PCS; 2022-12-06)
PROC: 3E013GC Introduction of Other Therapeutic Substance into Subcutaneous Tissue, Percutaneous Approach (ICD-10-PCS; 2022-12-06)
DX: R41.82 Altered mental status, unspecified (principal); H10.32 Unspecified acute conjunctivitis, left eye; F10.220 Alcohol dependence with intoxication, uncomplicated; R55 Syncope and collapse; Y93.9 Activity, unspecified; Y92.9 Unspecified place or not applicable; C79.51 Secondary malignant neoplasm of bone; Z85.118 Personal history of other malignant neoplasm of bronchus and lung; Z92.21 Personal history of antineoplastic chemotherapy; Z92.3 Personal history of irradiation; Z88.0 Allergy status to penicillin; I10 Essential (primary) hypertension; D72.819 Decreased white blood cell count, unspecified; D64.89 Other specified anemias; W19.XXXA Unspecified fall, initial encounter
CPT/HCPCS: 0241U-QW; 36415; 70450-TC; 70486-TC; 71045-TC-FY; 80048; 80053; 80307; 81003; 82962; 83036; 83735; 84100; 84443; 85025; 85027; 87086; 93005; 93010; 93306-TC; 96372; 96374; 96375; 96376; 97116-GP; 97161-GP; 99285-25; G0378; J1644

== ENCOUNTER 2022-12-17 00:33 | Observation (INO) | payer OTHER ==
[2022-12-17 01:45] LABS: BASO % 0.8 % (0-2.0); EOS % 2.5 % (0-4.5); HEMATOCRIT 35.2 % (35.4-49); HEMOGLOBIN 11.5 GM/dL (11.7-16.9); MCH 28.2 pg (25.7-33.7); MCHC 32.7 g/dl (32.0-35.9); MEAN CELL VOLUME 86.3 fl (80-96); MEAN PLT VOLUME 7.6 fl (7.5-11.1); MONO % 12.9 % (3.8-10.2); NEUT % 54.8 % (42.8-82.8); PLATELET COUNT 307 10^3/uL (134-434); RBC 4.08 M/mm3 (4.00-5.60); RDW 20.2 % (11.9-15.9)
[2022-12-17 01:48] LABS: ALBUMIN 3.6 g/dl (3.4-5.0)
[2022-12-17 01:51] LABS: CREATININE 3.4 mg/dL (0.55-1.3)
[2022-12-17 01:52] LABS: BILIRUBIN,TOTAL 0.2 mg/dL (0.2-1)
[2022-12-17] MEDS ORDERED: SODIUM CHLORIDE 0.9% 500 ML INFUS.BAG IV ONE (01:56)
[2022-12-17] MEDS ORDERED: THIAMINE HCL 200 MG/2 ML VIAL IVPB ONE (07:36)
[2022-12-17] MEDS ORDERED: THIAMINE HCL 200 MG/2 ML VIAL ONE (09:13)
[2022-12-17] MEDS ORDERED: DEXTROSE 5%-NORMAL SALINE 1,000 ML IV SCH ×2 (12:45)
[2022-12-17 13:04] VITALS: BMI 18.2
[2022-12-17 19:20] LABS: BLOOD UREA NITROGEN 26.2 mg/dL (7-18); CALCIUM 8.7 mg/dL (8.5-10.1)
[2022-12-17 19:22] LABS: CREATININE 1.9 mg/dL (0.55-1.3)
[2022-12-17 19:32] LABS: ALBUMIN 3.5 g/dl (3.4-5.0)
[2022-12-17 19:34] LABS: BILIRUBIN,DIRECT 0.1 mg/dL (0.0-0.2)
[2022-12-17 19:36] LABS: BILIRUBIN,TOTAL 0.4 mg/dL (0.2-1)
[2022-12-17 19:37] LABS: TOT PROT 7.7 g/dl (6.4-8.2)
[2022-12-17 21:05] LABS: EOS % 4.4 % (0-4.5); HEMATOCRIT 31.7 % (35.4-49); HEMOGLOBIN 10.3 GM/dL (11.7-16.9); LYMPH % 19.2 % (8-40); MCH 28.4 pg (25.7-33.7); MCHC 32.6 g/dl (32.0-35.9); MEAN CELL VOLUME 87.1 fl (80-96); MEAN PLT VOLUME 8.3 fl (7.5-11.1); MONO % 11.5 % (3.8-10.2); NEUT % 63.9 % (42.8-82.8); PLATELET COUNT 233 10^3/uL (134-434); RBC 3.63 M/mm3 (4.00-5.60); RDW 19.7 % (11.9-15.9)
[2022-12-17] MEDS: HEPARIN NA (PORCINE) 5,000 UNITS/ML 1ML VIAL SQ SCH (22:06)
[2022-12-18] MEDS: HEPARIN NA (PORCINE) 5,000 UNITS/ML 1ML VIAL SQ SCH ×3 (05:45→21:01)
[2022-12-18 08:19] LABS: BASO % 1.2 % (0-2.0); EOS % 5.2 % (0-4.5); HEMATOCRIT 32.6 % (35.4-49); HEMOGLOBIN 10.8 GM/dL (11.7-16.9); LYMPH % 19.5 % (8-40); MCH 29.2 pg (25.7-33.7); MEAN CELL VOLUME 88.4 fl (80-96); MEAN PLT VOLUME 8.3 fl (7.5-11.1); MONO % 11.3 % (3.8-10.2); NEUT % 62.8 % (42.8-82.8); PLATELET COUNT 227 10^3/uL (134-434); RBC 3.69 M/mm3 (4.00-5.60); WHITE BLOOD COUNT 3.3 K/mm3 (4.0-10.0)
[2022-12-18] MEDS ORDERED: LORazepam 2 MG/ML SDV VIAL IVPUSH PRN (08:24)
[2022-12-18 08:45] LABS: CALCIUM 8.1 mg/dL (8.5-10.1)
[2022-12-18 08:46] LABS: BLOOD UREA NITROGEN 25.8 mg/dL (7-18)
[2022-12-18 08:48] LABS: CREATININE 1.4 mg/dL (0.55-1.3)
[2022-12-18] MEDS ORDERED: MAGNESIUM 2GM/50ML STERILE WATER IVPB IVPB ONE (08:48)
[2022-12-18 08:49] LABS: BILIRUBIN,TOTAL 0.8 mg/dL (0.2-1); PHOSPHOROUS 3.2 mg/dL (2.5-4.9); TOT PROT 6.6 g/dl (6.4-8.2)
[2022-12-18] MEDS: FOLIC ACID 1 MG TABLET (FP) PO SCH (10:08)
[2022-12-18] MEDS: THIAMINE HCL 200 MG/2 ML VIAL IVPB SCH (10:09)
[2022-12-18] MEDS ORDERED: LACTATED RINGERS SOLUTION 1,000 ML/1,000 ML INFUS.BAG IV SCH (13:15)
[2022-12-18] MEDS ORDERED: ACETAMINOPHEN 500 MG TABLET (FP) PO PRN (14:32)
[2022-12-18] MEDS: amLODIPine BESYLATE 5 MG TABLET (FP) PO SCH (15:32)
[2022-12-18] MEDS: MAGNESIUM OXIDE 400 MG TABLET (FP) PO SCH (21:15)
[2022-12-19] MEDS: HEPARIN NA (PORCINE) 5,000 UNITS/ML 1ML VIAL SQ SCH (06:06)
[2022-12-19 08:45] LABS: BASO % 1.1 % (0-2.0); EOS % 6.3 % (0-4.5); HEMATOCRIT 35.1 % (35.4-49); HEMOGLOBIN 11.5 GM/dL (11.7-16.9); LYMPH % 17.5 % (8-40); MCH 28.4 pg (25.7-33.7); MCHC 32.7 g/dl (32.0-35.9); MEAN CELL VOLUME 86.9 fl (80-96); MONO % 8.8 % (3.8-10.2); NEUT % 66.3 % (42.8-82.8); PLATELET COUNT 217 10^3/uL (134-434); RBC 4.04 M/mm3 (4.00-5.60); RDW 20.1 % (11.9-15.9); WHITE BLOOD COUNT 3.3 K/mm3 (4.0-10.0)
[2022-12-19 08:55] LABS: CALCIUM 8.9 mg/dL (8.5-10.1)
[2022-12-19 08:56] LABS: ALBUMIN 3.3 g/dl (3.4-5.0)
[2022-12-19 08:58] LABS: BLOOD UREA NITROGEN 15.6 mg/dL (7-18)
[2022-12-19 08:59] LABS: MAGNESIUM 1.3 mg/dL (1.8-2.4); PHOSPHOROUS 2.8 mg/dL (2.5-4.9)
[2022-12-19 09:00] LABS: BILIRUBIN,TOTAL 0.6 mg/dL (0.2-1); TOT PROT 7.2 g/dl (6.4-8.2)
[2022-12-19 09:01] LABS: CREATININE 1.1 mg/dL (0.55-1.3)
[2022-12-19] MEDS: THIAMINE HCL 200 MG/2 ML VIAL IVPB SCH (09:54)
[2022-12-19] MEDS: amLODIPine BESYLATE 5 MG TABLET (FP) PO SCH (09:54)
[2022-12-19] MEDS: MAGNESIUM OXIDE 400 MG TABLET (FP) PO SCH (09:55)
[2022-12-19] MEDS: FOLIC ACID 1 MG TABLET (FP) PO SCH (09:55)
[2022-12-19 11:12] VITALS: BP 130/74; PULSE 76; RESP 18; TEMP 98.4
== END 2022-12-19 12:06 | disposition home or self-care (01) ==
LOC: JER 00:33 → JERBED 05:10 → J7W 16:11
PROVIDERS: ADMIT Internal Medicine; ATTEND Internal Medicine
PROC: 3E033GC Introduction of Other Therapeutic Substance into Peripheral Vein, Percutaneous Approach (ICD-10-PCS; principal; 2022-12-17)
PROC: 3E023GC Introduction of Other Therapeutic Substance into Muscle, Percutaneous Approach (ICD-10-PCS; 2022-12-17)
PROC: 3E0337Z Introduction of Electrolytic and Water Balance Substance into Peripheral Vein, Percutaneous Approach (ICD-10-PCS; 2022-12-17)
DX: F10.129 Alcohol abuse with intoxication, unspecified (principal); I95.9 Hypotension, unspecified; Z88.0 Allergy status to penicillin; N17.9 Acute kidney failure, unspecified; C34.90 Malignant neoplasm of unspecified part of unspecified bronchus or lung; C79.51 Secondary malignant neoplasm of bone; Z29.8 Encounter for other specified prophylactic measures; F17.210 Nicotine dependence, cigarettes, uncomplicated
CPT/HCPCS: 0241U-QW; 36415; 71045-TC-FY; 80048; 80053; 80076; 80307; 82550; 82553; 83735; 84100; 84484; 85025; 93005; 93010; 96372; 96374; 99285-25; G0378; J1644

== ENCOUNTER 2023-01-02 19:03 | Observation (INO) | payer OTHER ==
[2023-01-02 19:10] VITALS: BMI 18.2
[2023-01-02 21:43] LABS: BASO % 0.8 % (0-2.0); EOS % 7.6 % (0-4.5); HEMATOCRIT 33.7 % (35.4-49); HEMOGLOBIN 11.4 GM/dL (11.7-16.9); MCH 29.4 pg (25.7-33.7); MCHC 33.7 g/dl (32.0-35.9); MEAN CELL VOLUME 87.2 fl (80-96); MONO % 9.2 % (3.8-10.2); NEUT % 63.4 % (42.8-82.8); PLATELET COUNT 227 10^3/uL (134-434); RBC 3.86 M/mm3 (4.00-5.60); RDW 20.3 % (11.9-15.9)
[2023-01-02 21:52] LABS: CALCIUM 7.8 mg/dL (8.5-10.1)
[2023-01-02 21:53] LABS: ALBUMIN 3.6 g/dl (3.4-5.0); BLOOD UREA NITROGEN 39.6 mg/dL (7-18); MAGNESIUM 1.5 mg/dL (1.8-2.4)
[2023-01-02 21:57] LABS: CREATININE 1.8 mg/dL (0.55-1.3)
[2023-01-02 21:58] LABS: BILIRUBIN,TOTAL 0.4 mg/dL (0.2-1); TOT PROT 8.4 g/dl (6.4-8.2)
[2023-01-02] MEDS ORDERED: SODIUM CHLORIDE 0.9% 500 ML INFUS.BAG IV ONE (22:04)
[2023-01-02] MEDS ORDERED: MAGNESIUM SULF 50% (8.12 MEQ/2 ML-1 GM VIAL) IVPB ONE (22:04)
[2023-01-02] MEDS ORDERED: MAGNESIUM SULFATE IN WATER 2 GM/50 ML IVPB IVPB ONE (22:22)
[2023-01-02] MEDS ORDERED: LACTATED RINGERS SOLUTION 1000 ML INFUS.BAG IV ONE (22:40)
[2023-01-03] MEDS ORDERED: FOLIC ACID INJECTION - 1 MG, THIAMINE HCL 100 MG, MULTIVIT INJECTION ADULT 10 ML in SOD... IVPB ONE (01:02)
[2023-01-03] MEDS ORDERED: ONDANSETRON 4 MG/2 ML VIAL ONE (02:43)
[2023-01-03] MEDS ORDERED: SODIUM CHLORIDE 1,000 ML IV SCH ×2 (06:30→13:15)
[2023-01-03 07:27] LABS: EOS % 7.7 % (0-4.5); HEMATOCRIT 32.8 % (35.4-49); LYMPH % 22.6 % (8-40); MCH 29.2 pg (25.7-33.7); MCHC 33.5 g/dl (32.0-35.9); MEAN CELL VOLUME 87.4 fl (80-96); MEAN PLT VOLUME 8.2 fl (7.5-11.1); NEUT % 58.7 % (42.8-82.8); PLATELET COUNT 212 10^3/uL (134-434); RBC 3.75 M/mm3 (4.00-5.60); RDW 19.8 % (11.9-15.9); WHITE BLOOD COUNT 2.8 K/mm3 (4.0-10.0)
[2023-01-03 07:38] LABS: MAGNESIUM 1.7 mg/dL (1.8-2.4)
[2023-01-03 07:41] LABS: ALBUMIN 3.2 g/dl (3.4-5.0); BLOOD UREA NITROGEN 33.4 mg/dL (7-18); CALCIUM 7.6 mg/dL (8.5-10.1)
[2023-01-03 07:44] LABS: CREATININE 1.4 mg/dL (0.55-1.3)
[2023-01-03 07:45] LABS: BILIRUBIN,TOTAL 0.2 mg/dL (0.2-1); TOT PROT 7.1 g/dl (6.4-8.2)
[2023-01-03] MEDS ORDERED: FOLIC ACID 1 MG TABLET (FP) PO SCH (10:00)
[2023-01-03] MEDS: HEPARIN NA (PORCINE) 5,000 UNITS/ML 1ML VIAL SQ SCH ×2 (14:25→21:25)
[2023-01-03] MEDS: THIAMINE HCL 200 MG/2 ML VIAL IM SCH (14:26)
[2023-01-03] MEDS: MAGNESIUM OXIDE 400 MG TABLET (FP) PO SCH ×2 (14:26→21:25)
[2023-01-03] MEDS ORDERED: THIAMINE HCL 100 MG TABLET (FP) PO SCH (22:00)
[2023-01-04 07:57] LABS: CALCIUM 7.9 mg/dL (8.5-10.1)
[2023-01-04 07:58] LABS: BLOOD UREA NITROGEN 19.6 mg/dL (7-18)
[2023-01-04 08:01] LABS: CREATININE 1.2 mg/dL (0.55-1.3)
[2023-01-04 08:03] LABS: BILIRUBIN,TOTAL 0.4 mg/dL (0.2-1); TOT PROT 6.7 g/dl (6.4-8.2)
[2023-01-04 08:42] VITALS: BP 155/96; PULSE 79; RESP 18; TEMP 98.5
[2023-01-04] MEDS: THIAMINE HCL 200 MG/2 ML VIAL IM SCH (09:57)
[2023-01-04] MEDS: MAGNESIUM OXIDE 400 MG TABLET (FP) PO SCH (09:57)
[2023-01-04] MEDS: HEPARIN NA (PORCINE) 5,000 UNITS/ML 1ML VIAL SQ SCH (09:58)
== END 2023-01-04 13:32 | disposition home or self-care (01) ==
LOC: JER 19:03 → INTOOBSV 01-03 00:39 → JERBED 01-03 00:39 → J4W 01-03 08:04
PROVIDERS: ADMIT Internal Medicine; ATTEND Internal Medicine
PROC: 3E033GC Introduction of Other Therapeutic Substance into Peripheral Vein, Percutaneous Approach (ICD-10-PCS; principal; 2023-01-03)
PROC: 3E023GC Introduction of Other Therapeutic Substance into Muscle, Percutaneous Approach (ICD-10-PCS; 2023-01-03)
PROC: 3E0337Z Introduction of Electrolytic and Water Balance Substance into Peripheral Vein, Percutaneous Approach (ICD-10-PCS; 2023-01-03)
DX: F10.129 Alcohol abuse with intoxication, unspecified (principal); N17.9 Acute kidney failure, unspecified; M62.82 Rhabdomyolysis; R79.89 Other specified abnormal findings of blood chemistry; Z85.118 Personal history of other malignant neoplasm of bronchus and lung; W18.39XA Other fall on same level, initial encounter; Y93.89 Activity, other specified; Y92.89 Other specified places as the place of occurrence of the external cause; Z88.0 Allergy status to penicillin
CPT/HCPCS: 0241U-QW; 36415; 70450-TC; 72125-TC; 80053; 80307; 82550; 82553; 83735; 84484; 85025; 93005; 93010; 96361; 96365; 96372; 96375; 97116-GP; 97162-GP; 99285-25; G0378; J1644

== ENCOUNTER 2023-01-17 04:35 | Day surgery (SDC) | payer MEDICARE, OTHER ==
[2023-01-13 16:13] VITALS: BMI 19.0
[2023-01-17 09:36] VITALS: TEMP 98.4
[2023-01-17 10:08] VITALS: RESP 12
[2023-01-17 11:30] VITALS: BP 150/80; PULSE 77
== END 2023-01-17 10:30 | disposition home or self-care (01) ==
LOC: JASU-ENDO 04:35
PROVIDERS: ATTEND Internal Medicine Gastroenterology
PROC: 0DJD8ZZ Inspection of Lower Intestinal Tract, Via Natural or Artificial Opening Endoscopic (ICD-10-PCS; principal; 2023-01-17 09:00)
DX: Z12.11 Encounter for screening for malignant neoplasm of colon (principal); K64.8 Other hemorrhoids; K57.30 Diverticulosis of large intestine without perforation or abscess without bleeding; Z86.010 Personal history of colon polyps; R63.4 Abnormal weight loss; Z68.1 Body mass index [BMI] 19.9 or less, adult

== ENCOUNTER 2023-02-01 01:11 | Emergency (ER) | payer MEDICARE, OTHER ==
[2023-02-01 01:28] VITALS: BP 137/81; PULSE 93; RESP 18; TEMP 98.1; BMI 17.6
[2023-02-01] MEDS ORDERED: DEXAMETHASONE SOD PHOSPHATE 10 MG/1 ML VIAL IM ONE (01:46)
[2023-02-01] MEDS ORDERED: DEXAMETHASONE SOD PHOSPHATE 10 MG/1 ML VIAL ONE (02:00)
== END 2023-02-01 02:48 | disposition home or self-care (01) ==
LOC: JER 01:11
PROC: 3E023GC Introduction of Other Therapeutic Substance into Muscle, Percutaneous Approach (ICD-10-PCS; principal; 2023-02-01)
DX: R21 Rash and other nonspecific skin eruption (principal)
CPT/HCPCS: 99284-25; J1100

== ENCOUNTER 2023-03-08 13:48 | Emergency (ER) | payer OTHER ==
[2023-03-08] MEDS ORDERED: PERMETHRIN 5% TOPICAL CREAM 60 GM TUBE TP ONE (14:38)
[2023-03-08 15:36] VITALS: BP 95/56; PULSE 83; RESP 20; TEMP 98.7; BMI 19.0
== END 2023-03-08 16:43 | disposition home or self-care (01) ==
LOC: JER 13:48
DX: L29.9 Pruritus, unspecified (principal); R21 Rash and other nonspecific skin eruption
CPT/HCPCS: 99283-25

== ENCOUNTER 2023-04-20 13:23 | Observation (INO) | payer OTHER ==
[2023-04-20] MEDS ORDERED: DEXTROSE 50%-WATER 25 GM/50 ML DISP.SYRIN ONE (13:47)
[2023-04-20] MEDS ORDERED: DEXTROSE 50%-WATER - 25 GM/50 ML VIAL IVPUSH ONE (14:39)
[2023-04-20 14:50] LABS: BASO % 0.5 % (0-2.0); HEMATOCRIT 31.8 % (35.4-49); HEMOGLOBIN 10.3 GM/dL (11.7-16.9); LYMPH % 11.2 % (8-40); MCH 29.1 pg (25.7-33.7); MCHC 32.5 g/dl (32.0-35.9); MEAN CELL VOLUME 89.5 fl (80-96); MEAN PLT VOLUME 8.1 fl (7.5-11.1); MONO % 5.7 % (3.8-10.2); NEUT % 72.6 % (42.8-82.8); PLATELET COUNT 217 10^3/uL (134-434); RBC 3.55 M/mm3 (4.00-5.60); RDW 18.1 % (11.9-15.9); WHITE BLOOD COUNT 4.4 K/mm3 (4.0-10.0)
[2023-04-20 15:00] LABS: INR 1.02 (0.83-1.09); PROTHROMBIN TIME (PATIENT) 11.8 SEC (9.7-13.0)
[2023-04-20 15:03] LABS: ACTIVATED PTT 27.1 SECONDS (25.2-36.5)
[2023-04-20 15:23] LABS: POTASSIUM 4.2 mmol/L (3.5-5.1)
[2023-04-20 15:25] LABS: ALBUMIN 3.4 g/dl (3.4-5.0); CALCIUM 9.1 mg/dL (8.5-10.1)
[2023-04-20 15:29] LABS: CREATININE 2.4 mg/dL (0.55-1.3)
[2023-04-20 15:30] LABS: TOT PROT 7.2 g/dl (6.4-8.2)
[2023-04-20 15:31] LABS: BILIRUBIN,TOTAL 0.4 mg/dL (0.2-1)
[2023-04-20] MEDS ORDERED: LACTATED RINGERS SOLUTION 1,000 ML/1,000 ML INFUS.BAG IV SCH (17:15)
[2023-04-20] MEDS ORDERED: ACETAMINOPHEN 325 MG TABLET (FP) PO PRN (19:57)
[2023-04-20] MEDS ORDERED: DOCUSATE SODIUM 100 MG CAPSULE (FP) PO PRN (19:57)
[2023-04-20] MEDS ORDERED: FOLIC ACID INJECTION - 1 MG, THIAMINE HCL 100 MG, MULTIVIT INJECTION ADULT 10 ML in SOD... IVPB ONE (21:00)
[2023-04-21 01:35] LABS: EPI CELLS 5 /uL (0-25.1); HYALINE CASTS 1 /uL (0-3.1); PH,URINE 6.5 (5.0-8.0); URINE APPEARANCE CLEAR; URINE BACTERIA 6 /uL (0-1359); URINE BILIRUBIN NEGATIVE (NEGATIVE); URINE COLOR YELLOW; URINE GLUCOSE (UA) NEGATIVE (NEGATIVE); URINE KETONE NEGATIVE (NEGATIVE); URINE LEUK ESTERASE NEGATIVE (NEGATIVE); URINE NITRITE NEGATIVE (NEGATIVE); URINE PROTEIN 2+ (NEGATIVE); URINE RBC 10 /uL (0-23.9); URINE WBC 5 /uL (0-25.8)
[2023-04-21 07:44] LABS: BASO % 0.3 % (0-2.0); EOS % 11.4 % (0-4.5); HEMATOCRIT 31.2 % (35.4-49); HEMOGLOBIN 10.2 GM/dL (11.7-16.9); LYMPH % 16.7 % (8-40); MCH 29.9 pg (25.7-33.7); MCHC 32.7 g/dl (32.0-35.9); MEAN CELL VOLUME 91.3 fl (80-96); MEAN PLT VOLUME 8.8 fl (7.5-11.1); MONO % 9.9 % (3.8-10.2); NEUT % 61.7 % (42.8-82.8); PLATELET COUNT 247 10^3/uL (134-434); RBC 3.41 M/mm3 (4.00-5.60); RDW 17.9 % (11.9-15.9)
[2023-04-21 08:03] LABS: CALCIUM 8.6 mg/dL (8.5-10.1)
[2023-04-21 08:04] LABS: BLOOD UREA NITROGEN 26.1 mg/dL (7-18)
[2023-04-21 08:07] LABS: PHOSPHOROUS 3.4 mg/dL (2.5-4.9)
[2023-04-21 08:15] LABS: CREATININE 1.5 mg/dL (0.55-1.3)
[2023-04-21] MEDS ORDERED: chlordiazePOXIDE HCL 10 MG CAPSULE PO PRN (08:35)
[2023-04-21] MEDS: amLODIPine BESYLATE 5 MG TABLET (FP) PO SCH (09:24)
[2023-04-21 09:25] VITALS: RESP 18
[2023-04-21] MEDS ORDERED: THIAMINE HCL 100 MG TABLET (FP) PO SCH (10:00)
[2023-04-21] MEDS ORDERED: MULTIVITAMINS THER W-MINERALS COMBO TABLET (FP) PO SCH (10:00)
[2023-04-21] MEDS ORDERED: FOLIC ACID 1 MG TABLET (FP) PO SCH (10:00)
[2023-04-21] MEDS: SODIUM CHLORIDE 0.45% 1,000 ML IV SCH (14:00)
[2023-04-21] MEDS ORDERED: ATORVASTATIN CA 40 MG TABLET (FP) PO SCH (22:00)
[2023-04-22] MEDS: SODIUM CHLORIDE 0.45% 1,000 ML IV SCH (02:47)
[2023-04-22 08:15] LABS: CALCIUM 8.6 mg/dL (8.5-10.1)
[2023-04-22 08:16] LABS: BLOOD UREA NITROGEN 21.4 mg/dL (7-18)
[2023-04-22 08:19] LABS: CREATININE 1.2 mg/dL (0.55-1.3)
[2023-04-22] MEDS: amLODIPine BESYLATE 5 MG TABLET (FP) PO SCH (09:30)
[2023-04-22] MEDS ORDERED: THIAMINE HCL 100 MG TABLET (FP) PO SCH (10:00)
[2023-04-22] MEDS ORDERED: MULTIVITAMINS THER W-MINERALS COMBO TABLET (FP) PO SCH (10:00)
[2023-04-22] MEDS ORDERED: FOLIC ACID 1 MG TABLET (FP) PO SCH (10:00)
[2023-04-22 12:04] VITALS: BMI 18.8
[2023-04-22] MEDS ORDERED: MAGNESIUM OXIDE 400 MG TABLET (FP) PO SCH (12:45)
[2023-04-22 15:08] VITALS: BP 137/88; PULSE 82; TEMP 98.6
== END 2023-04-22 17:28 | disposition home or self-care (01) ==
LOC: JER 13:23 → JERBED 17:14 → J4W 19:58
PROVIDERS: ADMIT Internal Medicine; ATTEND Internal Medicine
PROC: 3E033GC Introduction of Other Therapeutic Substance into Peripheral Vein, Percutaneous Approach (ICD-10-PCS; principal; 2023-04-20)
PROC: 3E033GC Introduction of Other Therapeutic Substance into Peripheral Vein, Percutaneous Approach (ICD-10-PCS; 2023-04-20)
PROC: 3E0337Z Introduction of Electrolytic and Water Balance Substance into Peripheral Vein, Percutaneous Approach (ICD-10-PCS; 2023-04-20)
DX: N17.9 Acute kidney failure, unspecified (principal); E86.0 Dehydration; Z85.118 Personal history of other malignant neoplasm of bronchus and lung; M62.82 Rhabdomyolysis; F10.90 Alcohol use, unspecified, uncomplicated; I25.10 Atherosclerotic heart disease of native coronary artery without angina pectoris; I10 Essential (primary) hypertension; F17.200 Nicotine dependence, unspecified, uncomplicated; R21 Rash and other nonspecific skin eruption; R55 Syncope and collapse; E43 Unspecified severe protein-calorie malnutrition; Z88.0 Allergy status to penicillin
CPT/HCPCS: 36415; 71045-TC-FY; 74176-TC; 80048; 80053; 81003; 82550; 82553; 82962; 83690; 83735; 84100; 84484; 85025; 85610; 85730; 87086; 93005; 93010; 96361; 96365; 96375; 97116-GP; 97161-GP; 99285-25; G0378

== ENCOUNTER 2023-11-20 12:58 | Inpatient (IN) | payer OTHER ==
[2023-11-20 14:08] LABS: VENOUS BASE EXCESS -8.5 mmol/L (-2-2); VENOUS O2 SATURATION 85.7 % (70-80); VENOUS PCO2 36.7 mmHg (38-52); VENOUS PH 7.292 (7.310-7.410)
[2023-11-20 14:17] LABS: BASO % 0.6 % (0-2.0); EOS % 19.1 % (0-4.5); HEMATOCRIT 29.2 % (35.4-49); HEMOGLOBIN 9.3 GM/dL (11.7-16.9); LYMPH % 22.5 % (8-40); MCH 26.4 pg (25.7-33.7); MCHC 31.8 g/dl (32.0-35.9); MEAN CELL VOLUME 83.2 fl (80-96); MEAN PLT VOLUME 7.6 fl (7.5-11.1); MONO % 7.4 % (3.8-10.2); NEUT % 50.4 % (42.8-82.8); PLATELET COUNT 604 10^3/uL (134-434); RBC 3.51 M/mm3 (4.00-5.60); RDW 20.2 % (11.9-15.9); WHITE BLOOD COUNT 4.6 K/mm3 (4.0-10.0)
[2023-11-20 14:19] LABS: INR 1.17 (0.83-1.09); PROTHROMBIN TIME (PATIENT) 13.6 SEC (9.7-13.0)
[2023-11-20 14:30] LABS: CALCIUM 8.1 mg/dL (8.5-10.1)
[2023-11-20 14:31] LABS: ALBUMIN 2.4 g/dl (3.4-5.0); BLOOD UREA NITROGEN 16.1 mg/dL (7-18); MAGNESIUM 1.3 mg/dL (1.8-2.4)
[2023-11-20 14:34] LABS: CREATININE 2.3 mg/dL (0.55-1.3)
[2023-11-20 14:35] LABS: BILIRUBIN,TOTAL 0.1 mg/dL (0.2-1); TOT PROT 6.8 g/dl (6.4-8.2)
[2023-11-20] MEDS ORDERED: MAGNESIUM 1GM/D5W - 2 GM/200 ML IVPB IVPB ONE (14:53)
[2023-11-20] MEDS ORDERED: MAGNESIUM SULFATE IN WATER 2 GM/50 ML IVPB IVPB ONE (14:54)
[2023-11-20] MEDS: LACTATED RINGERS SOLUTION 1000 ML INFUS.BAG IV ONE (14:59)
[2023-11-20] MEDS: MAGNESIUM SULF 50% (8.12 MEQ/2 ML-1 GM VIAL) IVPB ONE (14:59)
[2023-11-20] MEDS: LACTATED RINGERS SOLUTION 1,000 ML/1,000 ML INFUS.BAG IV SCH (18:46)
[2023-11-21 07:11] LABS: BASO % 0.6 % (0-2.0); EOS % 18.7 % (0-4.5); HEMATOCRIT 26.9 % (35.4-49); HEMOGLOBIN 8.7 GM/dL (11.7-16.9); LYMPH % 12.6 % (8-40); MCHC 32.5 g/dl (32.0-35.9); MEAN PLT VOLUME 7.4 fl (7.5-11.1); MONO % 7.9 % (3.8-10.2); NEUT % 60.2 % (42.8-82.8); PLATELET COUNT 571 10^3/uL (134-434); RBC 3.25 M/mm3 (4.00-5.60); RDW 20.1 % (11.9-15.9)
[2023-11-21 07:15] LABS: INR 1.17 (0.83-1.09); PROTHROMBIN TIME (PATIENT) 13.6 SEC (9.7-13.0)
[2023-11-21 07:18] LABS: ACTIVATED PTT 37.6 SECONDS (25.2-36.5)
[2023-11-21 07:40] LABS: CALCIUM 8.4 mg/dL (8.5-10.1)
[2023-11-21 07:41] LABS: BLOOD UREA NITROGEN 15.2 mg/dL (7-18); MAGNESIUM 1.9 mg/dL (1.8-2.4)
[2023-11-21 07:42] LABS: ALBUMIN 2.3 g/dl (3.4-5.0)
[2023-11-21 07:44] LABS: CREATININE 1.8 mg/dL (0.55-1.3); PHOSPHOROUS 5.8 mg/dL (2.5-4.9)
[2023-11-21 07:45] LABS: BILIRUBIN,TOTAL 0.2 mg/dL (0.2-1); TOT PROT 6.4 g/dl (6.4-8.2)
[2023-11-21 08:30] LABS: EPI CELLS 8 /uL (0-25.1); HYALINE CASTS 5 /uL (0-3.1); PH,URINE 5.5 (5.0-8.0); URINE APPEARANCE CLEAR; URINE BACTERIA 2 /uL (0-1359); URINE BILIRUBIN NEGATIVE (NEGATIVE); URINE COLOR YELLOW; URINE GLUCOSE (UA) NEGATIVE (NEGATIVE); URINE KETONE NEGATIVE (NEGATIVE); URINE LEUK ESTERASE NEGATIVE (NEGATIVE); URINE NITRITE NEGATIVE (NEGATIVE); URINE PROTEIN 1+ (NEGATIVE); URINE RBC 14 /uL (0-23.9); URINE WBC 25 /uL (0-25.8)
[2023-11-21] MEDS ORDERED: traMADol HCL 50 MG TABLET PO PRN (10:30)
[2023-11-21] MEDS ORDERED: DOCUSATE SODIUM 100 MG CAPSULE (FP) PO PRN (10:30)
[2023-11-21] MEDS: ASPIRIN COATED 81 MG TABLET.EC PO SCH (11:07)
[2023-11-21] MEDS: THIAMINE HCL 100 MG TABLET (FP) PO SCH (11:08)
[2023-11-21 12:23] LABS: SYPHILIS W/ RPR CONF NON-REACTIVE (NONREACTIVE)
[2023-11-21 12:52] LABS: HIV INTERPRETATION NEGATIVE (NEGATIVE)
[2023-11-21] MEDS: DEXTROSE 5%-0.45% SALINE 1,000 ML IV SCH (16:18)
[2023-11-21] MEDS: HEPARIN NA (PORCINE) 5,000 UNITS/ML 1ML VIAL SQ SCH (22:09)
[2023-11-21] MEDS: MAGNESIUM OXIDE 400 MG TABLET (FP) PO SCH (22:10)
[2023-11-21] MEDS: ATORVASTATIN CA 40 MG TABLET (FP) PO SCH (22:10)
[2023-11-21 23:59] VITALS: BMI 16.9
[2023-11-22 06:57] LABS: HEMATOCRIT 26.4 % (35.4-49); HEMOGLOBIN 8.6 GM/dL (11.7-16.9); MCH 27.3 pg (25.7-33.7); MCHC 32.6 g/dl (32.0-35.9); MEAN CELL VOLUME 83.7 fl (80-96); PLATELET COUNT 565 10^3/uL (134-434); RBC 3.16 M/mm3 (4.00-5.60); RDW 20.3 % (11.9-15.9); WHITE BLOOD COUNT 5.8 K/mm3 (4.0-10.0)
[2023-11-22 07:13] LABS: POTASSIUM 5.1 mmol/L (3.5-5.1)
[2023-11-22 07:25] LABS: ALBUMIN 2.2 g/dl (3.4-5.0); BLOOD UREA NITROGEN 12.1 mg/dL (7-18); CALCIUM 8.3 mg/dL (8.5-10.1)
[2023-11-22 07:28] LABS: CREATININE 1.7 mg/dL (0.55-1.3)
[2023-11-22 07:30] LABS: BILIRUBIN,TOTAL 0.2 mg/dL (0.2-1)
[2023-11-22] MEDS: amLODIPine BESYLATE 5 MG TABLET (FP) PO SCH (09:24)
[2023-11-22] MEDS: FOLIC ACID 1 MG TABLET (FP) PO SCH (09:25)
[2023-11-22 11:18] LABS: ANISOCYTOSIS 3+; MACROCYTOSIS 0
[2023-11-22 13:20] LABS: EPI CELLS 4 /uL (0-25.1); HYALINE CASTS 0 /uL (0-3.1); PH,URINE 5.5 (5.0-8.0); URINE APPEARANCE CLEAR; URINE BACTERIA 1 /uL (0-1359); URINE BILIRUBIN NEGATIVE (NEGATIVE); URINE COLOR YELLOW; URINE GLUCOSE (UA) NEGATIVE (NEGATIVE); URINE KETONE NEGATIVE (NEGATIVE); URINE LEUK ESTERASE NEGATIVE (NEGATIVE); URINE NITRITE NEGATIVE (NEGATIVE); URINE PROTEIN 1+ (NEGATIVE); URINE RBC 7 /uL (0-23.9); URINE WBC 6 /uL (0-25.8)
[2023-11-22] MEDS: MINERAL OIL/PET HY-PHL TOPICAL OINTMENT 454 GM JAR TP SCH (15:10)
[2023-11-22] MEDS ORDERED: ATORVASTATIN CA 20 MG TABLET (FP) ONE (21:26)
[2023-11-23] MEDS ORDERED: traMADol HCL 50 MG TABLET PO PRN (04:49)
[2023-11-23] MEDS ORDERED: DOCUSATE SODIUM 100 MG CAPSULE (FP) PO PRN (04:49)
[2023-11-23] MEDS: DEXTROSE 5%-0.45% SALINE 1,000 ML IV SCH (06:01)
[2023-11-23] MEDS: THIAMINE HCL 100 MG TABLET (FP) PO SCH (09:11)
[2023-11-23] MEDS: FOLIC ACID 1 MG TABLET (FP) PO SCH (09:11)
[2023-11-23] MEDS: ASPIRIN COATED 81 MG TABLET.EC PO SCH (09:11)
[2023-11-23] MEDS: MAGNESIUM OXIDE 400 MG TABLET (FP) PO SCH (09:11)
[2023-11-23] MEDS: amLODIPine BESYLATE 5 MG TABLET (FP) PO SCH (09:11)
[2023-11-23] MEDS: HEPARIN NA (PORCINE) 5,000 UNITS/ML 1ML VIAL SQ SCH (09:14)
[2023-11-23] MEDS: ATORVASTATIN CA 40 MG TABLET (FP) PO SCH (21:56)
[2023-11-24 05:14] VITALS: RESP 20
[2023-11-24 08:20] VITALS: BP 133/79; PULSE 94; TEMP 97.6
[2023-11-24 10:42] LABS: POTASSIUM 5.7 mmol/L (3.5-5.1)
[2023-11-24 10:51] LABS: CALCIUM 8.6 mg/dL (8.5-10.1)
[2023-11-24 10:52] LABS: BLOOD UREA NITROGEN 13.5 mg/dL (7-18)
[2023-11-24 10:55] LABS: CREATININE 1.4 mg/dL (0.55-1.3)
== END 2023-11-24 14:00 | disposition home or self-care (01) | DRG 136 ==
LOC: JER 12:58 → JERBED 17:11 → OBSVTOIN 17:54 → J4W 20:56 → J6S 11-23 04:13
PROVIDERS: ADMIT Internal Medicine; ATTEND Internal Medicine
DX: C34.12 Malignant neoplasm of upper lobe, left bronchus or lung (principal); L30.8 Other specified dermatitis; R62.7 Adult failure to thrive; C79.51 Secondary malignant neoplasm of bone; E87.0 Hyperosmolality and hypernatremia; M62.82 Rhabdomyolysis; I25.10 Atherosclerotic heart disease of native coronary artery without angina pectoris; I25.2 Old myocardial infarction; N17.9 Acute kidney failure, unspecified; R64 Cachexia; Z68.1 Body mass index [BMI] 19.9 or less, adult; F10.20 Alcohol dependence, uncomplicated; E43 Unspecified severe protein-calorie malnutrition; R55 Syncope and collapse; R94.31 Abnormal electrocardiogram [ECG] [EKG]; J44.9 Chronic obstructive pulmonary disease, unspecified; D64.9 Anemia, unspecified; I10 Essential (primary) hypertension; Z91.148 Patient's other noncompliance with medication regimen for other reason
CPT/HCPCS: 36415; 71045-TC-FY; 71250-TC; 80048; 80053; 80307; 81003; 82010; 82550; 82553; 82803; 83735; 84100; 84484; 85025; 85610; 85730; 86780; 86850; 86900; 86901; 87389; 93005; 93010; 97116-GP; 97161-GP; 99285-25; G0378; J1644